=== PATIENT | female | born 1940 | race Caucasian/White ===

== ENCOUNTER 2019-08-28 06:07 | Inpatient (IN) | payer MEDICARE, OTHER ==
[~2019-08-28 06:07] MED LIST: Acetaminophen 325 MG Tab PO SCH; Lidocaine 1%/Sod Bicarbonate in NS 8.4% 1 ML Syringe IDERM PRN; Pregabalin 25 MG Cap PO SCH; Sodium Chloride 0.9% 10 ML Syringe FLUSH PRN; oxyCODONE ER 10 MG TAB.ER PO SCH
[2019-08-28] MEDS: Lactated Ringers 1,000 ML IV SCH ×2 (06:15→06:40)
[2019-08-28] MEDS ORDERED: Naloxone 0.4 MG/ML SDV IVPUSH PRN (06:24)
[2019-08-28] MEDS ORDERED: Sennosides 8.6 MG Tab PO PRN (06:24)
[2019-08-28] MEDS ORDERED: Bisacodyl 5 MG Tab PO PRN (06:24)
[2019-08-28] MEDS ORDERED: Magnesium Hydroxide 400 MG/5 ML Susp 30 ML Cup PO PRN (06:24)
[2019-08-28] MEDS ORDERED: Morphine 2 MG/ML SYRINGE IVPUSH PRN (06:24)
[2019-08-28] MEDS ORDERED: Ondansetron 4 MG/2 ML SDV IVPUSH PRN (06:24)
--- NOTE | 2019-08-28 07:09 | PCM.PREANE ---
Preanesthetic Assessment - Anesthesia/Transfusion/Family Hx Anesthesia History: Prior Anesthesia Without Reaction (previous TKR procedure ended in aborted spinal and conversion to GA) Other Type of Anesthesia Reaction Comment: PONV Transfusion History: No Prior Transfusion(s) Intubation History: Unknown - Review of Systems General: No Symptoms Pulmonary: No Symptoms Cardiovascular: No Symptoms Gastrointestinal: No Symptoms Neurological: No Symptoms Other: Reports: None - Physical Assessment NPO Status Date: 08/27/19 NPO Status Time: 21:00 Vital Signs: Last Vital Signs Temp 97.8 F 08/28/19 06:20 Pulse 91 08/28/19 06:20 Resp 16 08/28/19 06:20 BP 134/72 08/28/19 06:20 Pulse Ox 91 L 08/28/19 06:20 Height: 1.6 m Weight: 99.79 kg ASA Class: 3 Mental Status: Alert & Oriented x3 Airway Class: Mallampati = 3 Dentition: Reports: [place](s), Missing Tooth/Teeth Thyro-Mental Finger Breadths: 3 Mouth Opening Finger Breadths: 3 ROM/Head Extension: Full Lungs: Clear to Auscultation, Normal Respiratory Effort, Decreased Breath Sounds Cardiovascular: Regular Rate, Regular Rhythm - Lab Values: Laboratory Last Values MRSA (PCR) Negative 08/15/19 13:55 - Allergies Allergies/Adverse Reactions: Allergies Allergy/AdvReac Type Severity Reaction Status Date / Time cephalexin Allergy Hives Verified 08/25/19 11:18 codeine Allergy Hives Verified 08/25/19 11:18 nitrofurantoin Allergy Rash Verified 08/25/19 11:18 sulfacetamide Allergy Hives Verified 08/25/19 11:18 - Acknowledgements Anesthesia Type Planned: General Anesthesia, Spinal, Regional Block (adductor canal post-procedure) Pt an Appropriate Candidate for the Planned Anesthesia: Yes Alternatives and Risks of Anesthesia Discussed w Pt/Guardian: Yes Pt/Guardian Understands and Agrees with Anesthesia Plan: Yes PreAnesthesia Questionnaire HEENT History: Reports: Allergic Rhinitis, Impaired Vision Cardiovascular History: Reports: Heart Failure, High Cholesterol, Hypertension, Other (See Below) Other Cardiovascular History: chest pain, edema Respiratory History: Reports: Asthma Gastrointestinal History: Reports: Hiatal Hernia Genitourinary History: Reports: Other (See Below) Other Genitourinary History: dysuria, hematuria Musculoskeletal History: Reports: Arthritis, Back Pain, Chronic, Osteoarthritis , Osteoporosis, Other (See Below) Other Musculoskeletal History: knee pain, back pain, restless leg syndrome Psychiatric History: Reports: Depression Endocrine/Metabolic History: Reports: Obesity/BMI 30+ Hematologic History: Reports: Bleeding Disorder Immunologic History: Reports: None Oncologic (Cancer) History: Reports: None Dermatologic History: Reports: None - Past Surgical History Head Surgeries/Procedures: Reports: None Cardiovascular Surgical History: Reports: None Respiratory Surgical History: Reports: None GI Surgical History: Reports: Nicanor Fundoplication Female Surgical History: Reports: Hysterectomy Other Female Surgeries/Procedures: Bladder surgery Endocrine Surgical History: Reports: None Neurological Surgical History: Reports: Lumbar Spine Musculoskeletal Surgical History: Reports: Knee Replacement (December 2018) Oncologic Surgical History: Reports: None Dermatological Surgical History: Reports: None - SUBSTANCE USE Smoking Status *Q: Former Smoker Recreational Drug Use History: No - HOME MEDS Home Medications: Home Meds Denosumab [Prolia] 60 mg SUBCUT ASDIRECTED 04/02/17 [History] Albuterol [Ventolin HFA] 1 - 2 puff INH Q6H PRN 12/24/18 [History] Bumetanide 1 mg PO DAILY 12/24/18 [History] Cetirizine HCl [Zyrtec] 10 mg PO DAILY 12/24/18 [History] Gabapentin [Neurontin] 600 mg PO BID 12/24/18 [History] Montelukast [Singulair] 10 mg PO BEDTIME 12/24/18 [History] Cove-3/DHA/Epa/Fish Oil [Cove 3 500 Softgel] 1 cap PO DAILY 12/24/18 [History] Pramipexole Di-HCl [Mirapex] 1 mg PO BEDTIME 12/24/18 [History] Sennosides/Docusate Sodium [Senna-Docusate Sodium Tablet] 2 tab PO DAILY [History] atorvaSTATin [Lipitor] 20 mg PO DAILY 12/24/18 [History] Cholecalciferol (Vitamin D3) [Vitamin D3] 5,000 unit PO DAILY 08/25/19 [History] Levothyroxine 25 mcg PO DAILY 08/25/19 [History] Losartan Potassium 100 mg PO DAILY 08/25/19 [History] hydroCHLOROthiazide [Hydrochlorothiazide] 12.5 mg PO DAILY 08/25/19 [History] oxyCODONE HCl/Acetaminophen [Oxycodone-Acetaminophen 5-325] 1 - 2 tab PO Q4H PRN 08/25/19 [History] traMADol HCl [Tramadol HCl] 100 mg PO Q6H PRN 08/25/19 [History] Tiotropium [Spiriva HandiHaler] 1 puff INH ASDIRECTED 08/28/19 [History] - CURRENT (IN HOUSE) MEDS Current Meds: Current Medications Acetaminophen (Tylenol) 975 mg PO ONETIME [facility] Stop: 08/28/19 16:00 Last Admin: 08/28/19 06:14 Dose: 975 mg Bisacodyl (Dulcolax) 5 mg PO DAILY PRN PRN Reason: Constipation Morphine Sulfate 8 mg/Epinephrine HCl 0.3 mg/Cefuroxime Sodium 750 mg/Ketorolac Tromethamine 30 mg/Sodium Chloride 7.9 ml 0 mg .XX ASDIRECTED PRN PRN Reason: Pain Cyclobenzaprine HCl (Flexeril) 5 mg PO BID PRN PRN Reason: Spasms Docusate Sodium (Colace) 100 mg PO BID LORENZO Famotidine (Pepcid) 20 mg PO Q12H [facility] Lactated Ringer's (Ringers, Lactated) 1,000 mls @ 125 mls/hr IV ASDIRECTED [facility] Stop: 08/28/19 23:00 Last Admin: 08/28/19 06:40 Dose: 125 mls/hr Cefazolin Sodium/Dextrose 2 gm (/ Premix) 50 mls @ 100 mls/hr IV Q8H [facility] Stop: 08/28/19 22:59 Ketorolac Tromethamine (Toradol) 15 mg IVPUSH Q6H PRN PRN Reason: Pain Lidocaine/Sodium Bicarbonate (Buffered Lidocaine 1% In Ns 8.4%) 0.25 ml IDERM ONETIME PRN PRN Reason: Prior to IV Start Stop: 08/28/19 18:00 Last Admin: 08/28/19 06:15 Dose: 0.25 ml Magnesium Hydroxide (Milk Of Magnesia) 30 ml PO BID PRN PRN Reason: Constipation Morphine Sulfate (Morphine) 2 mg IVPUSH Q2H PRN PRN Reason: Breakthrough Pain Naloxone HCl (Narcan) 0.1 mg IVPUSH Q5M PRN PRN Reason: Oversedation Ondansetron HCl (Zofran) 4 mg IVPUSH Q6H PRN PRN Reason: Nausea/Vomiting Oxycodone HCl (Oxycontin) 10 mg PO ONETIME [facility] Stop: 08/28/19 16:00 Last Admin: 08/28/19 06:14 Dose: 10 mg Oxycodone/Acetaminophen (Percocet 325-5 Mg) 1 - 2 tab PO Q4H PRN PRN Reason: Pain Pregabalin (Lyrica) 50 mg PO ONETIME [facility] Stop: 08/28/19 16:00 Last Admin: 08/28/19 06:14 Dose: 50 mg Rivaroxaban (Xarelto) 10 mg PO DAILY [facility] Senna (Senna) 8.6 mg PO BID PRN PRN Reason: Constipation Sodium Chloride (Saline Flush) 10 ml FLUSH ASDIRECTED PRN PRN Reason: Keep Vein Open Stop: 08/28/19 18:00 Discontinued Medications Bupivacaine HCl (Sensorcaine-Mpf 0.25%) Confirm Administered Dose 30 ml .ROUTE .STK-MED ONE Stop: 08/28/19 06:13 Cefazolin Sodium (Ancef) Confirm Administered Dose 2 gm .ROUTE .STK-MED ONE Stop: 08/28/19 06:13 Iodine (Iodine 2% Mild Tincture) Confirm Administered Dose 30 ml .ROUTE .STK- MED ONE Stop: 08/28/19 06:13 Tranexamic Acid (Cyklokapron) Confirm Administered Dose 1,000 mg .ROUTE .STK- MED ONE Stop: 08/28/19 06:13 Vancomycin HCl (Vancomycin) Confirm Administered Dose 1 gm .ROUTE .STK-MED ONE Stop: 08/28/19 06:13
[2019-08-28] MEDS ORDERED: EPINEPHrine 1 MG/ML SDV ONE ×2 (07:12→07:16)
[2019-08-28] MEDS ORDERED: Ropivacaine 0.5% 5 MG/ML 30 ML SDV ONE (07:12)
[2019-08-28] MEDS ORDERED: Propofol 200 MG/20 ML SDV ONE (07:13)
[2019-08-28] MEDS ORDERED: fentaNYL 100 MCG/2 ML SDV ONE (07:13)
[2019-08-28] MEDS ORDERED: Midazolam 1 MG/ML 2 ML SDV ONE (07:13)
[2019-08-28] MEDS ORDERED: ceFAZolin 1 GM Vial ONE (07:18)
[2019-08-28] MEDS: ceFAZolin 1 GM Vial ONE ×2 (08:27→08:48)
[2019-08-28] MEDS: Bupivacaine 0.25% 10 ML SDV ONE ×2 (08:27→08:54)
[2019-08-28] MEDS: Iodine/Sodium Iodide 2% Tincture 30 ML Bottle ONE ×2 (08:27→08:45)
[2019-08-28] MEDS: Morphine 8 MG, EPINEPHrine 0.3 MG, Cefuroxime 750 MG, Ketorolac 30 MG, Sodium Chloride ... ONE ×10 (08:28→08:54)
[2019-08-28] MEDS: Vancomycin 1 GM SDV ONE ×2 (08:28→08:56)
--- NOTE | 2019-08-28 08:33 | PCM.CONS ---
H&P History of Present Illness - General Date of Service: 08/28/19 Admit Problem/Dx: Admission Diagnosis/Problem Admission Diagnosis/Problem Osteoarthritis of knee Source of Information: Patient, Old Records, Provider, RN, RN Notes Reviewed History Limitations: Reports: No Limitations - History of Present Illness Initial Comments - Free Text/Narative: Angela Fuentes is a 79 yo female patient of Dr. Coyne who is post-operative day 0 of left TKA. Hospital medicine was consulted for post-operative medical care of the following listed medical conditions. At this time she is resting comfortably in bed. Pain is controlled. She denies any chest pain, shortness of breath, palpitations, nausea, or vomiting. She carries a history of: Asthma, Type II DM, Chronic low back pain, HTN, RLS, HLD, Depression, Dysuria, Edema, Hematuria, Osteoporosis, Heart failure, Hiatal hernia, Osteoarthritis, Obesity, Bleeding disorder, Hyperthyroidism, Hx/o Nicanor fundoplication. She is a former smoker. She is a full code. Her primary care provider is Dr. Alex. Left Knee Pain Score (Numeric/FACES): 3 - Related Data Allergies/Adverse Reactions: Allergies Allergy/AdvReac Type Severity Reaction Status Date / Time cephalexin Allergy Hives Verified 08/25/19 11:18 codeine Allergy Hives Verified 08/25/19 11:18 nitrofurantoin Allergy Rash Verified 08/25/19 11:18 sulfacetamide Allergy Hives Verified 08/25/19 11:18 Home Medications: Home Meds Denosumab [Prolia] 60 mg SUBCUT ASDIRECTED 04/02/17 [History] Albuterol [Ventolin HFA] 1 - 2 puff INH Q6H PRN 12/24/18 [History] Bumetanide 1 mg PO DAILY 12/24/18 [History] Cetirizine HCl [Zyrtec] 10 mg PO DAILY 12/24/18 [History] Gabapentin [Neurontin] 600 mg PO BID 12/24/18 [History] Montelukast [Singulair] 10 mg PO BEDTIME 12/24/18 [History] Zenda-3/DHA/Epa/Fish Oil [Zenda 3 500 Softgel] 1 cap PO DAILY 12/24/18 [History] Pramipexole Di-HCl [Mirapex] 1 mg PO BEDTIME 12/24/18 [History] Sennosides/Docusate Sodium [Senna-Docusate Sodium Tablet] 2 tab PO DAILY [History] atorvaSTATin [Lipitor] 20 mg PO DAILY 12/24/18 [History] Cholecalciferol (Vitamin D3) [Vitamin D3] 5,000 unit PO DAILY 08/25/19 [History] Levothyroxine 25 mcg PO DAILY 08/25/19 [History] Losartan Potassium 100 mg PO DAILY 08/25/19 [History] hydroCHLOROthiazide [Hydrochlorothiazide] 12.5 mg PO DAILY 08/25/19 [History] oxyCODONE HCl/Acetaminophen [Oxycodone-Acetaminophen 5-325] 1 - 2 tab PO Q4H PRN 08/25/19 [History] traMADol HCl [Tramadol HCl] 100 mg PO Q6H PRN 08/25/19 [History] Tiotropium [Spiriva HandiHaler] 1 puff INH ASDIRECTED 08/28/19 [History] Past Medical History HEENT History: Reports: Allergic Rhinitis, Impaired Vision Cardiovascular History: Reports: Heart Failure, High Cholesterol, Hypertension, Other (See Below) Other Cardiovascular History: chest pain, edema Respiratory History: Reports: Asthma Gastrointestinal History: Reports: Hiatal Hernia Genitourinary History: Reports: Other (See Below) Other Genitourinary History: dysuria, hematuria STRIP[employer] GUN History: Reports: None Musculoskeletal History: Reports: Arthritis, Back Pain, Chronic, Osteoarthritis , Osteoporosis, Other (See Below) Other Musculoskeletal History: knee pain, back pain, restless leg syndrome Neurological History: Reports: None Psychiatric History: Reports: Depression Endocrine/Metabolic History: Reports: Obesity/BMI 30+ Hematologic History: Reports: Bleeding Disorder Immunologic History: Reports: None Oncologic (Cancer) History: Reports: None Dermatologic History: Reports: None - Past Surgical History Head Surgeries/Procedures: Reports: None Cardiovascular Surgical History: Reports: None Respiratory Surgical History: Reports: None GI Surgical History: Reports: Nicanor Fundoplication Female Surgical History: Reports: Hysterectomy Other Female Surgeries/Procedures: Bladder surgery Endocrine Surgical History: Reports: None Neurological Surgical History: Reports: Lumbar Spine Musculoskeletal Surgical History: Reports: Knee Replacement (December 2018) Oncologic Surgical History: Reports: None Dermatological Surgical History: Reports: None Social & Family History - Tobacco Use Smoking Status *Q: Former Smoker Used Tobacco, but Quit: Yes Month/Year Tobacco Last Used: 1969 - Caffeine Use Caffeine Use: Reports: Coffee - Recreational Drug Use Recreational Drug Use: No H&P Review of Systems - Review of Systems: Review Of Systems: See Below General: Reports: No Symptoms. Denies: Fever, Chills HEENT: Reports: No Symptoms. Denies: Headaches, Sore Throat Pulmonary: Reports: No Symptoms. Denies: Shortness of Breath, Wheezing, Pleuritic Chest Pain, Cough, Sputum Cardiovascular: Reports: No Symptoms. Denies: Chest Pain, Palpitations, Dyspnea on Exertion Gastrointestinal: Reports: No Symptoms. Denies: Abdominal Pain, Constipation, Diarrhea, Nausea, Vomiting Genitourinary: Reports: No Symptoms Musculoskeletal: Reports: Back Pain (chroinc ), Leg Pain (left) Skin: Reports: No Symptoms. Denies: Cyanosis Psychiatric: Reports: No Symptoms. Denies: Confusion Neurological: Reports: Difficulty Walking, Gait Disturbance Hematologic/Lymphatic: Reports: No Symptoms Immunologic: Reports: No Symptoms Exam - Exam Exam: See Below - Vital Signs Vital Signs: Last Vital Signs Temp 97.8 F 08/28/19 06:20 Pulse 91 08/28/19 06:20 Resp 16 08/28/19 06:20 BP 134/72 08/28/19 06:20 Pulse Ox 91 L 08/28/19 06:20 Weight: 220 lb - Exam Quality Assessment: Supplemental Oxygen (2L), DVT Prophylaxis General: Alert, Oriented, Cooperative. No: Mild Distress HEENT: Conjunctiva Clear, EACs Clear, Hearing Intact, Mucosa Moist & [place], Posterior Pharynx Clear, PERRLA Neck: Supple, Trachea Midline Lungs: Clear to Auscultation, Normal Respiratory Effort Cardiovascular: Regular Rate, Regular Rhythm GI/Abdominal Exam: Normal Bowel Sounds, Soft, Non-Tender, No Distention (Female) Exam: Deferred Rectal (Female) Exam: Deferred Extremities: Normal Capillary Refill, Leg Pain, Limited Range of Motion, Other ( Bandage in place on left leg. Bandage is dry and intact. Cooling pack in place. ) Peripheral Pulses: 2+: Radial (L), Radial (R), Dorsalis Pedis (L), Dorsalis Pedis (R) Skin: Warm, Dry, Intact Neurological: Cranial Nerves Intact (Grossly ) Neuro Extensive - Mental Status: Alert, Oriented x3, Normal Mood/Affect - Patient Data Lab Results Last 24 hrs: Laboratory Results - last 24 hr 08/28/19 Range/Units 06:35 PT 10.3 (9.7-12.0) SECONDS INR 0.94 APTT 25 (22-31) SECONDS Sepsis Event Note - Evaluation Sepsis Screening Result: No Definite Risk - Focused Exam Vital Signs: Vital Signs Temp Pulse Resp BP Pulse Ox 08/28/19 06:20 97.8 F 91 16 134/72 91 L Date Exam was Performed: 08/28/19 Time Exam was Performed: 14:02 Consult PN Assessment/Plan POD#: 0 Procedures: Procedures AIRWAY INHALATION TREATMENT (12/26/18) ASSAY OF BLOOD/URIC ACID (08/14/19) ASSAY OF CK (CPK) (09/29/18) ASSAY OF CREATININE (04/02/17) ASSAY OF FREE THYROXINE (08/14/19) ASSAY OF IRON (08/14/19) ASSAY OF LACTIC ACID (08/14/19) ASSAY OF MAGNESIUM (01/04/19) ASSAY OF NATRIURETIC PEPTIDE (09/29/18) ASSAY OF TROPONIN QUANT (09/29/18) ASSAY THYROID STIM HORMONE (08/14/19) BREAST TOMOSYNTHESIS BI (08/16/19) C-REACTIVE PROTEIN (08/14/19) CARDIOVASCULAR STRESS TEST (11/01/18) CO/MEMBANE DIFFUSE CAPACITY (08/10/19) COMPLETE CBC AUTOMATED (12/26/18) COMPLETE CBC W/AUTO DIFF WBC (08/14/19) COMPREHEN METABOLIC PANEL (08/14/19) DXA BONE DENSITY AXIAL (07/29/18) ELECTROCARDIOGRAM TRACING (12/15/18) EVALUATION OF WHEEZING (08/10/19) EXTREMITY STUDY (01/03/19) FIBRIN DEGRADATION QUANT (09/29/18) GAIT TRAINING THERAPY (12/26/18) GLYCOSYLATED HEMOGLOBIN TEST (08/14/19) HT MUSCLE IMAGE SPECT MULT (11/01/18) LIPID PANEL (08/14/19) MEASURE BLOOD OXYGEN LEVEL (12/26/18) MR-STAPH DNA AMP PROBE (12/26/18) MRI LUMBAR SPINE W/O & W/DYE (04/02/17) MRI LUMBAR SPINE W/O DYE (02/06/16) OFFICE/OUTPATIENT VISIT EST (01/04/19) OFFICE/OUTPATIENT VISIT EST (12/15/18) OFFICE/OUTPATIENT VISIT EST (10/06/18) OFFICE/OUTPATIENT VISIT EST (09/29/18) OT EVAL MOD COMPLEX 45 MIN (12/26/18) PROTHROMBIN TIME (12/26/18) PT EVAL LOW COMPLEX 20 MIN (12/26/18) ROUTINE VENIPUNCTURE (08/14/19) SCR MAMMO BI INCL CAD (08/16/19) SELF CARE MNGMENT TRAINING (12/26/18) SMEAR WET MOUNT SALINE/INK (10/06/18) THER/PROPH/DIAG INJ SC/IM (01/04/19) THERAPEUTIC EXERCISES (12/26/18) THROMBOPLASTIN TIME PARTIAL (12/26/18) TRICHOMONAS ASSAY W/OPTIC (10/06/18) URINALYSIS AUTO W/SCOPE (08/15/19) US EXAM ABDO BACK WALL COMP (11/01/18) US EXAM OF HEAD AND NECK (07/29/18) VITAMIN B-12 (08/14/19) X-RAY EXAM CHEST 2 VIEWS (09/29/18) X-RAY EXAM L-S SPINE 2/3 VWS (05/07/17) X-RAY EXAM OF KNEE 1 OR 2 (12/26/18) X-RAY EXAM OF PELVIS (12/29/16) (1) Asthma SNOMED Code(s): 419530286 Code(s): J45.909 - UNSPECIFIED ASTHMA, UNCOMPLICATED Priority: Medium Current Visit: No Qualifiers: Asthma severity: unspecified severity Asthma persistence: unspecified Asthma complication type: unspecified Qualified Code(s): J45.909 - Unspecified asthma, uncomplicated (2) Blood clotting disorder SNOMED Code(s): 07820017 Code(s): D68.9 - COAGULATION DEFECT, UNSPECIFIED Priority: Medium Current Visit: No (3) CHF (congestive heart failure) SNOMED Code(s): 77679693 Code(s): I50.9 - HEART FAILURE, UNSPECIFIED Priority: Medium Current Visit: No Qualifiers: Heart failure type: unspecified Heart failure chronicity: unspecified Qualified Code(s): I50.9 - Heart failure, unspecified (4) Chronic constipation SNOMED Code(s): 614596978 Code(s): K59.09 - OTHER CONSTIPATION Priority: Medium Current Visit: No (5) Depression SNOMED Code(s): 24272121 Code(s): F32.9 - MAJOR DEPRESSIVE DISORDER, SINGLE EPISODE, UNSPECIFIED Priority: Low Current Visit: No Qualifiers: Depression Type: other depression Qualified Code(s): F32.89 - Other specified depressive episodes (6) Edema SNOMED Code(s): 394240950, 720563983 Code(s): R60.9 - EDEMA, UNSPECIFIED Priority: Low Current Visit: No Qualifiers: Edema type: unspecified Qualified Code(s): R60.9 - Edema, unspecified (7) HTN (hypertension) SNOMED Code(s): 77666113 Code(s): I10 - ESSENTIAL (PRIMARY) HYPERTENSION Priority: Low Current Visit: No Qualifiers: Hypertension type: unspecified Qualified Code(s): I10 - Essential (primary ) hypertension (8) Hiatal hernia SNOMED Code(s): 27317289 Code(s): K44.9 - DIAPHRAGMATIC HERNIA WITHOUT OBSTRUCTION OR GANGRENE Priority: Medium Current Visit: No (9) History of Nicanor fundoplication SNOMED Code(s): 211508032 Code(s): Z98.890 - OTHER SPECIFIED POSTPROCEDURAL STATES Priority: Medium Current Visit: No (10) Obesity (BMI 35.0-39.9 without comorbidity) SNOMED Code(s): 260489445, 074469953 Code(s): E66.9 - OBESITY, UNSPECIFIED Priority: Low Current Visit: No (11) Osteoarthritis SNOMED Code(s): 388103435 Code(s): M19.90 - UNSPECIFIED OSTEOARTHRITIS, UNSPECIFIED SITE Priority: High Current Visit: No Qualifiers: Osteoarthritis location: knee Osteoarthritis type: primary Laterality: left Qualified Code(s): M17.12 - Unilateral primary osteoarthritis, left knee (12) Osteoporosis SNOMED Code(s): 55342835 Code(s): M81.0 - AGE-RELATED OSTEOPOROSIS W/O CURRENT PATHOLOGICAL FRACTURE Priority: Medium Current Visit: No Qualifiers: Osteoporosis type: unspecified Presence of current pathological fracture: unspecified Qualified Code(s): M81.0 - Age-related osteoporosis without current pathological fracture (13) RLS (restless legs syndrome) SNOMED Code(s): 15619832 Code(s): G25.81 - RESTLESS LEGS SYNDROME Priority: Medium Current Visit: No (14) S/P total knee arthroplasty SNOMED Code(s): 9365112826960, 988627998, 2206772961493 Code(s): Z96.659 - PRESENCE OF UNSPECIFIED ARTIFICIAL KNEE JOINT Priority: High Current Visit: No Qualifiers: Laterality: left Qualified Code(s): Z96.652 - Presence of left artificial knee joint (15) Chronic low back pain SNOMED Code(s): 041163487 Code(s): M54.5 - LOW BACK PAIN; G89.29 - OTHER CHRONIC PAIN Priority: Low Current Visit: No Qualifiers: Back pain laterality: unspecified Sciatica presence: unspecified whether sciatica present Qualified Code(s): M54.5 - Low back pain; G89.29 - Other chronic pain (16) Type II diabetes mellitus SNOMED Code(s): 83636280 Code(s): E11.9 - TYPE 2 DIABETES MELLITUS WITHOUT COMPLICATIONS Priority: Medium Current Visit: No Qualifiers: Diabetes mellitus intermission coordinator insulin use: without intermission coordinator use Diabetes mellitus complication status: with other specified complication Qualified Code (s): E11.69 - Type 2 diabetes mellitus with other specified complication (17) Hyperthyroidism SNOMED Code(s): 73038743 Code(s): E05.90 - THYROTOXICOSIS, UNSP WITHOUT THYROTOXIC CRISIS OR STORM Priority: Low Current Visit: No Problem List Initiated/Reviewed/Updated: Yes Plan: I/P: Acute: S/P left total knee arthroplasty - post-operative day 0 -DVT prophylaxis and pain management per primary care team -PT/OT -IS/RT -Monitor oxygen saturation -Titrate oxygen as needed -Home medications reviewed -Vital signs stable -Monitor labs -Pre-operative Hgb was 13.0 -Pre-operative GFR was >60 Osteoarthritis of left knee -Pain management per primary care team Chronic: Asthma Type II DM Chronic low back pain HTN RLS HLD Depression Dysuria Edema Hematuria Osteoporosis Heart failure Hiatal hernia Osteoarthritis Obesity Bleeding disorder Hyperthyroidism Hx/o Nicanor fundoplication Plan: CM for discharge planning GI prophylaxis Home medications as indicated Other orders as listed above Routine AM labs She is a full code. Her PCP is Dr. Alex Thank you for allowing us to participate in the care of this patient!! Requesting Provider: Dr. Coyne Date Consult Requested: 08/28/19 Patient History Reviewed: Yes Admission H&P Reviewed: Yes Notified Requestor: Yes
--- NOTE | 2019-08-28 09:52 | PCM.POSTAN ---
POST ANESTHESIA ASSESSMENT - MENTAL STATUS Mental Status: Alert, Oriented - VITAL SIGNS Vital Signs: Last Vital Signs Temp 98.3 F 08/28/19 09:24 Pulse 91 08/28/19 06:20 Resp 11 L 08/28/19 09:45 BP 123/63 08/28/19 09:45 Pulse Ox 96 08/28/19 09:45 - RESPIRATORY Respiratory Status: Respiratory Rate WNL, Airway Patent, O2 Saturation Stable, Supplemental Oxygen - CARDIOVASCULAR CV Status: Pulse Rate WNL, Blood Pressure Stable - GASTROINTESTINAL GI Status: No Symptoms - PAIN Pain Score: 0 (post SAB) - POST OP HYDRATION Hydration Status: Adequate & Stable
--- NOTE | 2019-08-28 10:06 | PCM.PRNOTE ---
- Free Text/Narrative Note: Postoperative regional pain control requested by surgeon. Pre-op Dx: Left knee osteoarthritis. Post-op Rx: Total Left knee arthroplasty. Procedure: Left Adductor canal block with U/S guidance Requesting physician: Dr. Micky Hernandez Risks and benefits discussed with the patient preoperatively including infection , bleeding, incomplete or failed block, possible nerve damage, local anesthetic toxicity. Permit signed. Patient after spinal anesthesia post surgery in PACU, stable , alert and awake. Time out performed. Left mid-thigh was prepped with Chloraprep x 1 and allowed to dry. Under aseptic technique, the left femoral artery and sartorius muscle were identified under ultrasound prior to needle insertion. 4" Stimuplex needle #22 G was inserted under US guidance. Under direct visualization of needle tip the injection of 0.5% Ropivacaine with 1:200k epinephrine, total of 30 mls in divided doses, maintaining negative aspiration was completed without problems. No local anesthetic toxicity was noted. Patient is awake, stable and tolerated the procedure well. Time: 09:30 - 09:37 Francisco Iqbal CRNA Please see attached U/S pictures.
--- NOTE | 2019-08-28 11:03 | CR ---
Left knee: AP and lateral views of the left knee were obtained. Comparison: No prior left knee exam. Knee prosthesis is seen. Components are aligned. Underlying bony structures are intact. Soft tissue air is noted from the surgical procedure. Impression: 1. Satisfactory postop radiographic appearance of recently placed left knee prosthesis. Diagnostic code #2 This report was dictated in [place] Standard Time
[2019-08-28] MEDS: Cyclobenzaprine 10 MG Tab PO PRN ×2 (11:40→21:59)
[2019-08-28] MEDS: Acetaminophen/oxyCODONE 325-5 MG Tab PO PRN ×3 (11:42→21:57)
[2019-08-28] MEDS ORDERED: Non-Formulary Medication 1 Each (Albuterol 0 PUFF) INH PRN (13:04)
[2019-08-28] MEDS ORDERED: Denosumab 60 MG/1 ML Syringe SUBCUT SCH (13:15)
[2019-08-28] MEDS ORDERED: TIOTROPIUM INH SCH (13:15)
[2019-08-28] MEDS ORDERED: Albuterol/Ipratropium 3.0-0.5 MG/3 ML Neb Soln NEB PRN (14:01)
[2019-08-28] MEDS: ceFAZolin 2 GM in Premix Bag 1 BAG IV SCH ×2 (15:26→23:26)
[2019-08-28] MEDS ORDERED: Docusate Sodium 100 MG Cap PO SCH (21:00)
[2019-08-28] MEDS ORDERED: Pramipexole 0.5 MG Tab PO SCH (21:00)
[2019-08-28] MEDS ORDERED: Montelukast 10 MG Tab PO SCH (21:00)
[2019-08-28] MEDS: Famotidine 20 MG Tab PO SCH (21:57)
[2019-08-28] MEDS: Gabapentin 600 MG Tab PO SCH (23:22)
[2019-08-29] MEDS: Ketorolac 15 MG/ML SDV IVPUSH PRN ×2 (01:09→07:48)
[2019-08-29] MEDS: Acetaminophen/oxyCODONE 325-5 MG Tab PO PRN ×3 (01:48→10:46)
[2019-08-29] MEDS: ceFAZolin 2 GM in Premix Bag 1 BAG IV SCH (06:52)
--- NOTE | 2019-08-29 07:05 | PCM.CONSN ---
- General Info Date of Service: 08/29/19 Admission Dx/Problem (Free Text): Admission Diagnosis/Problem Admission Diagnosis/Problem Osteoarthritis of knee Functional Status: Reports: Pain Controlled, Tolerating Diet, Ambulating, Urinating, Incentive Spirometry. Denies: New Symptoms - Review of Systems General: Reports: No Symptoms. Denies: Fever, Chills HEENT: Reports: No Symptoms. Denies: Headaches, Sore Throat Pulmonary: Reports: No Symptoms. Denies: Shortness of Breath, Pleuritic Chest Pain, Cough, Sputum, Wheezing Cardiovascular: Reports: No Symptoms. Denies: Chest Pain, Palpitations, Dyspnea on Exertion Gastrointestinal: Reports: No Symptoms. Denies: Abdominal Pain, Constipation, Diarrhea, Nausea, Vomiting Genitourinary: Reports: No Symptoms. Denies: Pain Musculoskeletal: Reports: Leg Pain Skin: Reports: No Symptoms. Denies: Cyanosis Neurological: Reports: No Symptoms, Difficulty Walking, Gait Disturbance. Denies: Confusion Psychiatric: Reports: No Symptoms - Patient Data Vitals - Most Recent: Last Vital Signs Temp 97.6 F 08/29/19 01:00 Pulse 91 08/29/19 01:00 Resp 14 08/29/19 01:00 BP 129/62 08/29/19 01:00 Pulse Ox 95 08/29/19 01:00 Weight - Most Recent: 220 lb I&O - Last 24 Hours: Intake & Output 08/28/19 08/29/19 08/29/19 22:59 06:59 14:59 Intake Total 1320 Output Total 825 625 Balance 495 -625 Lab Results Last 24 Hours: Laboratory Results - last 24 hr 08/28/19 08/29/19 08/29/19 Range/Units 06:35 05:52 05:52 WBC 8.65 (3.98-10.04) K/mm3 RBC 3.95 L (3.98-5.22) M/mm3 Hgb 11.5 D (11.2-15.7) gm/dl Hct 37.7 (34.1-44.9) % MCV 95.4 H (79.4-94.8) fl MCH 29.1 (25.6-32.2) pg MCHC 30.5 L (32.2-35.5) g/dl RDW Std Deviation 43.9 (36.4-46.3) fL Plt Count 285 D (182-369) K/mm3 MPV 9.3 L (9.4-12.3) fl PT 10.3 (9.7-12.0) SECONDS INR 0.94 APTT 25 (22-31) SECONDS Sodium 139 (136-145) mEq/L Potassium 4.1 (3.5-5.1) mEq/L Chloride 102 (98-107) mEq/L Carbon Dioxide 30 (21-32) mEq/L Anion Gap 11.1 (5-15) BUN 14 (7-18) mg/dL Creatinine 0.8 (0.55-1.02) mg/dL Est Cr Clr Drug Dosing 47.17 mL/min Estimated GFR (MDRD) > 60 (>60) mL/min BUN/Creatinine Ratio 17.5 (14-18) Glucose 121 H (83-115) mg/dL Calcium 8.8 (8.5-10.1) mg/dL Total Bilirubin 0.4 (0.2-1.0) mg/dL AST 15 (15-37) U/L ALT 21 (14-59) U/L Alkaline Phosphatase 87 (46-116) U/L Total Protein 7.1 (6.4-8.2) g/dl Albumin 3.0 L (3.4-5.0) g/dl Globulin 4.1 gm/dL Albumin/Globulin Ratio 0.7 L (1-2) Med Orders - Current: Current Medications Albuterol/Ipratropium (Duoneb 3.0-0.5 Mg/3 Ml) 3 ml NEB Q6HRRT PRN PRN Reason: wheezing/SOB/cough Bisacodyl (Dulcolax) 5 mg PO DAILY PRN PRN Reason: Constipation Cholecalciferol (Vitamin D3) 5,000 unit PO DAILY [facility] Cyclobenzaprine HCl (Flexeril) 5 mg PO BID PRN PRN Reason: Spasms Last Admin: 08/28/19 21:59 Dose: 5 mg Famotidine (Pepcid) 20 mg PO Q12H [facility] Last Admin: 08/28/19 21:57 Dose: 20 mg Gabapentin (Neurontin) 600 mg PO BID [facility] Last Admin: 08/28/19 23:22 Dose: 600 mg Cefazolin Sodium/Dextrose 2 gm (/ Premix) 50 mls @ 100 mls/hr IV Q8H [facility] Stop: 08/29/19 07:44 Last Admin: 08/29/19 06:52 Dose: 100 mls/hr Ketorolac Tromethamine (Toradol) 15 mg IVPUSH Q6H PRN PRN Reason: Pain Last Admin: 08/29/19 01:09 Dose: 15 mg Levothyroxine Sodium (Levothyroxine) 25 mcg PO DAILY [facility] Loratadine (Claritin) 10 mg PO DAILY [facility] Losartan Potassium (Cozaar) 100 mg PO DAILY [facility] Magnesium Hydroxide (Milk Of Magnesia) 30 ml PO BID PRN PRN Reason: Constipation Montelukast Sodium (Singulair) 10 mg PO BEDTIME [facility] Last Admin: 08/28/19 21:57 Dose: 10 mg Morphine Sulfate (Morphine) 2 mg IVPUSH Q2H PRN PRN Reason: Breakthrough Pain Last Admin: 08/29/19 00:31 Dose: 2 mg Naloxone HCl (Narcan) 0.1 mg IVPUSH Q5M PRN PRN Reason: Oversedation Non-Formulary Medication (Tiotropium) 1 puff INH ASDIRECTED [facility] Ondansetron HCl (Zofran) 4 mg IVPUSH Q6H PRN PRN Reason: Nausea/Vomiting Oxycodone/Acetaminophen (Percocet 325-5 Mg) 1 - 2 tab PO Q4H PRN PRN Reason: Pain Last Admin: 08/29/19 05:43 Dose: 2 tab Pramipexole Dihydrochloride (Mirapex) 1 mg PO BEDTIME [facility] Last Admin: 08/28/19 21:57 Dose: 1 mg Rivaroxaban (Xarelto) 10 mg PO DAILY [facility] Senna (Senna) 8.6 mg PO BID PRN PRN Reason: Constipation Senna/Docusate Sodium (Senna Plus) 2 tab PO DAILY [facility] Simvastatin (Zocor) 20 mg PO DAILY [facility] Discontinued Medications Acetaminophen (Tylenol) 975 mg PO ONETIME [facility] Stop: 08/28/19 16:00 Last Admin: 08/28/19 06:14 Dose: 975 mg Bupivacaine HCl (Sensorcaine-Mpf 0.25%) Confirm Administered Dose 30 ml .ROUTE .STK-MED ONE Stop: 08/28/19 06:13 Last Admin: 03/09/20 08:54 Dose: 30 ml Cefazolin Sodium (Ancef) Confirm Administered Dose 2 gm .ROUTE .STK-MED ONE Stop: 08/28/19 06:13 Last Admin: 08/28/19 08:48 Dose: 2 gm Cefazolin Sodium (Ancef) Confirm Administered Dose 2 gm .ROUTE .STK-MED ONE Stop: 08/28/19 07:19 Morphine Sulfate 8 mg/Epinephrine HCl 0.3 mg/Cefuroxime Sodium 750 mg/Ketorolac Tromethamine 30 mg/Sodium Chloride 7.9 ml 0 mg .XX ONETIME ONE Stop: 08/28/19 06:25 Last Admin: 08/28/19 08:54 Dose: 788.3 mg Denosumab (Prolia) 60 mg SUBCUT ASDIRECTED [facility] Docusate Sodium (Colace) 100 mg PO BID [facility] Epinephrine HCl (Adrenalin) Confirm Administered Dose 1 mg .ROUTE .STK-MED ONE Stop: 08/28/19 07:13 Epinephrine HCl (Adrenalin) Confirm Administered Dose 1 mg .ROUTE .STK-MED ONE Stop: 08/28/19 07:17 Fentanyl (Sublimaze) Confirm Administered Dose 100 mcg .ROUTE .STK-MED ONE Stop: 08/28/19 07:14 Lactated Ringer's (Ringers, Lactated) 1,000 mls @ 125 mls/hr IV ASDIRECTED [facility] Stop: 08/28/19 23:00 Last Admin: 08/28/19 06:40 Dose: 125 mls/hr Iodine (Iodine 2% Mild Tincture) Confirm Administered Dose 30 ml .ROUTE .STK- MED ONE Stop: 08/28/19 06:13 Last Admin: 08/28/19 08:45 Dose: 18 ml Lidocaine HCl (Xylocaine-Mpf 1%) Confirm Administered Dose 5 ml .ROUTE .STK-MED ONE Stop: 08/28/19 07:46 Lidocaine/Sodium Bicarbonate (Buffered Lidocaine 1% In Ns 8.4%) 0.25 ml IDERM ONETIME PRN PRN Reason: Prior to IV Start Stop: 08/28/19 18:00 Last Admin: 08/28/19 06:15 Dose: 0.25 ml Midazolam HCl (Versed 1 Mg/Ml) Confirm Administered Dose 2 mg .ROUTE .STK-MED ONE Stop: 08/28/19 07:14 Miscellaneous Medication (Phenylephrine 1 Mg/10 Ml-Ns) Confirm Administered Dose 1 mg IV .STK-MED ONE Stop: 08/28/19 08:02 Miscellaneous Medication (Phenylephrine 1 Mg/10 Ml-Ns) Confirm Administered Dose 1 mg IV .STK-MED ONE Stop: 08/28/19 08:49 Non-Formulary Medication (Albuterol) 1 - 2 puff INH Q6H PRN PRN Reason: Shortness of Breath Oxycodone HCl (Oxycontin) 10 mg PO ONETIME [facility] Stop: 08/28/19 16:00 Last Admin: 08/28/19 06:14 Dose: 10 mg Pregabalin (Lyrica) 50 mg PO ONETIME [facility] Stop: 08/28/19 16:00 Last Admin: 08/28/19 06:14 Dose: 50 mg Propofol (Diprivan 20 Ml) Confirm Administered Dose 400 mg .ROUTE .STK-MED ONE Stop: 08/28/19 07:14 Ropivacaine (Naropin 0.5%) Confirm Administered Dose 30 ml .ROUTE .STK-MED ONE Stop: 08/28/19 07:13 Sodium Chloride (Saline Flush) 10 ml FLUSH ASDIRECTED PRN PRN Reason: Keep Vein Open Stop: 08/28/19 18:00 Tranexamic Acid (Cyklokapron) Confirm Administered Dose 1,000 mg .ROUTE .STK- MED ONE Stop: 08/28/19 06:13 Last Admin: 08/28/19 08:56 Dose: 1,000 mg Vancomycin HCl (Vancomycin) Confirm Administered Dose 1 gm .ROUTE .STK-MED ONE Stop: 08/28/19 06:13 Last Admin: 08/28/19 08:56 Dose: 1 gm - Exam Quality Assessment: DVT Prophylaxis General: Alert, Oriented, Cooperative, No Acute Distress HEENT: Pupils Equal, Pupils Reactive, Mucous Membr. Moist/[place] Neck: Supple, Trachea Midline Lungs: Clear to Auscultation, Normal Respiratory Effort Cardiovascular: Regular Rate, Regular Rhythm GI/Abdominal Exam: Normal Bowel Sounds, Soft, Non-Tender, No Distention (Female) Exam: Deferred Back Exam: Normal Inspection, Full Range of Motion Extremities: Normal Capillary Refill, Leg Pain, Limited Range of Motion, Other ( Bandage on left leg. Cooling pack in place. ) Peripheral Pulses: 2+: Radial (L), Radial (R), Dorsalis Pedis (L), Dorsalis Pedis (R) Skin: Warm, Dry, Intact Wound/Incisions: Dressing Dry and Intact Neurological: No New Focal Deficit Psy/Mental Status: Alert, Normal Affect, Normal Mood Sepsis Event Note - Evaluation Sepsis Screening Result: No Definite Risk - Focused Exam Vital Signs: Vital Signs Temp Temp Pulse Pulse Resp BP BP 08/29/19 01:00 97.6 F 91 14 129/62 08/28/19 22:17 87 08/28/19 22:15 94 08/28/19 22:14 98.2 F 96 16 159/79 H Pulse Ox 08/29/19 01:00 95 08/28/19 22:17 97 08/28/19 22:15 99 08/28/19 22:14 99 Date Exam was Performed: 08/29/19 Time Exam was Performed: 08:48 Consult PN Assessment/Plan POD#: 1 Procedures: Procedures AIRWAY INHALATION TREATMENT (12/26/18) ASSAY OF BLOOD/URIC ACID (08/14/19) ASSAY OF CK (CPK) (09/29/18) ASSAY OF CREATININE (04/02/17) ASSAY OF FREE THYROXINE (08/14/19) ASSAY OF IRON (08/14/19) ASSAY OF LACTIC ACID (08/14/19) ASSAY OF MAGNESIUM (01/04/19) ASSAY OF NATRIURETIC PEPTIDE (09/29/18) ASSAY OF TROPONIN QUANT (09/29/18) ASSAY THYROID STIM HORMONE (08/14/19) BREAST TOMOSYNTHESIS BI (08/16/19) C-REACTIVE PROTEIN (08/14/19) CARDIOVASCULAR STRESS TEST (11/01/18) CO/MEMBANE DIFFUSE CAPACITY (08/10/19) COMPLETE CBC AUTOMATED (12/26/18) COMPLETE CBC W/AUTO DIFF WBC (08/14/19) COMPREHEN METABOLIC PANEL (08/14/19) DXA BONE DENSITY AXIAL (07/29/18) ELECTROCARDIOGRAM TRACING (12/15/18) EVALUATION OF WHEEZING (08/10/19) EXTREMITY STUDY (01/03/19) FIBRIN DEGRADATION QUANT (09/29/18) GAIT TRAINING THERAPY (12/26/18) GLYCOSYLATED HEMOGLOBIN TEST (08/14/19) HT MUSCLE IMAGE SPECT MULT (11/01/18) LIPID PANEL (08/14/19) MEASURE BLOOD OXYGEN LEVEL (12/26/18) MR-STAPH DNA AMP PROBE (12/26/18) MRI LUMBAR SPINE W/O & W/DYE (04/02/17) MRI LUMBAR SPINE W/O DYE (02/06/16) OFFICE/OUTPATIENT VISIT EST (01/04/19) OFFICE/OUTPATIENT VISIT EST (12/15/18) OFFICE/OUTPATIENT VISIT EST (10/06/18) OFFICE/OUTPATIENT VISIT EST (09/29/18) OT EVAL MOD COMPLEX 45 MIN (12/26/18) PROTHROMBIN TIME (12/26/18) PT EVAL LOW COMPLEX 20 MIN (12/26/18) ROUTINE VENIPUNCTURE (08/14/19) SCR MAMMO BI INCL CAD (08/16/19) SELF CARE MNGMENT TRAINING (12/26/18) SMEAR WET [place] SALINE/INK (10/06/18) THER/PROPH/DIAG INJ SC/IM (01/04/19) THERAPEUTIC EXERCISES (12/26/18) THROMBOPLASTIN TIME PARTIAL (12/26/18) TRICHOMONAS ASSAY W/OPTIC (10/06/18) URINALYSIS AUTO W/SCOPE (08/15/19) US EXAM ABDO BACK WALL COMP (11/01/18) US EXAM OF HEAD AND NECK (07/29/18) VITAMIN B-12 (08/14/19) X-RAY EXAM CHEST 2 VIEWS (09/29/18) X-RAY EXAM L-S SPINE 2/3 VWS (05/07/17) X-RAY EXAM OF KNEE 1 OR 2 (12/26/18) X-RAY EXAM OF PELVIS (12/29/16) (1) Asthma SNOMED Code(s): 988442978 Code(s): J45.909 - UNSPECIFIED ASTHMA, UNCOMPLICATED Priority: Medium Current Visit: No Qualifiers: Asthma severity: unspecified severity Asthma persistence: unspecified Asthma complication type: unspecified Qualified Code(s): J45.909 - Unspecified asthma, uncomplicated (2) Blood clotting disorder SNOMED Code(s): 63814114 Code(s): D68.9 - COAGULATION DEFECT, UNSPECIFIED Priority: Medium Current Visit: No (3) CHF (congestive heart failure) SNOMED Code(s): 95040721 Code(s): I50.9 - HEART FAILURE, UNSPECIFIED Priority: Medium Current Visit: No Qualifiers: Heart failure type: unspecified Heart failure chronicity: unspecified Qualified Code(s): I50.9 - Heart failure, unspecified (4) Chronic constipation SNOMED Code(s): 217652847 Code(s): K59.09 - OTHER CONSTIPATION Priority: Medium Current Visit: No (5) Depression SNOMED Code(s): 95838884 Code(s): F32.9 - MAJOR DEPRESSIVE DISORDER, SINGLE EPISODE, UNSPECIFIED Priority: Low Current Visit: No Qualifiers: Depression Type: other depression Qualified Code(s): F32.89 - Other specified depressive episodes (6) Edema SNOMED Code(s): 164419797, 177600870 Code(s): R60.9 - EDEMA, UNSPECIFIED Priority: Low Current Visit: No Qualifiers: Edema type: unspecified Qualified Code(s): R60.9 - Edema, unspecified (7) HTN (hypertension) SNOMED Code(s): 03014905 Code(s): I10 - ESSENTIAL (PRIMARY) HYPERTENSION Priority: Low Current Visit: No Qualifiers: Hypertension type: unspecified Qualified Code(s): I10 - Essential (primary ) hypertension (8) Hiatal hernia SNOMED Code(s): 96887661 Code(s): K44.9 - DIAPHRAGMATIC HERNIA WITHOUT OBSTRUCTION OR GANGRENE Priority: Medium Current Visit: No (9) History of Nicanor fundoplication SNOMED Code(s): 797268962 Code(s): Z98.890 - OTHER SPECIFIED POSTPROCEDURAL STATES Priority: Medium Current Visit: No (10) Obesity (BMI 35.0-39.9 without comorbidity) SNOMED Code(s): 721720927, 257734164 Code(s): E66.9 - OBESITY, UNSPECIFIED Priority: Low Current Visit: No (11) Osteoarthritis SNOMED Code(s): 561000381 Code(s): M19.90 - UNSPECIFIED OSTEOARTHRITIS, UNSPECIFIED SITE Priority: High Current Visit: No Qualifiers: Osteoarthritis location: knee Osteoarthritis type: primary Laterality: left Qualified Code(s): M17.12 - Unilateral primary osteoarthritis, left knee (12) Osteoporosis SNOMED Code(s): 76482897 Code(s): M81.0 - AGE-RELATED OSTEOPOROSIS W/O CURRENT PATHOLOGICAL FRACTURE Priority: Medium Current Visit: No Qualifiers: Osteoporosis type: unspecified Presence of current pathological fracture: unspecified Qualified Code(s): M81.0 - Age-related osteoporosis without current pathological fracture (13) RLS (restless legs syndrome) SNOMED Code(s): 42621557 Code(s): G25.81 - RESTLESS LEGS SYNDROME Priority: Medium Current Visit: No (14) S/P total knee arthroplasty SNOMED Code(s): 1771647848889, 690063180, 4706427398148 Code(s): Z96.659 - PRESENCE OF UNSPECIFIED ARTIFICIAL KNEE JOINT Priority: High Current Visit: No Qualifiers: Laterality: left Qualified Code(s): Z96.652 - Presence of left artificial knee joint (15) Chronic low back pain SNOMED Code(s): 170201487 Code(s): M54.5 - LOW BACK PAIN; G89.29 - OTHER CHRONIC PAIN Priority: Low Current Visit: No Qualifiers: Back pain laterality: unspecified Sciatica presence: unspecified whether sciatica present Qualified Code(s): M54.5 - Low back pain; G89.29 - Other chronic pain (16) Type II diabetes mellitus SNOMED Code(s): 41056405 Code(s): E11.9 - TYPE 2 DIABETES MELLITUS WITHOUT COMPLICATIONS Priority: Medium Current Visit: No Qualifiers: Diabetes mellitus skilled nursing insulin use: without intermission coordinator use Diabetes mellitus complication status: with other specified complication Qualified Code (s): E11.69 - Type 2 diabetes mellitus with other specified complication (17) Hyperthyroidism SNOMED Code(s): 41486034 Code(s): E05.90 - THYROTOXICOSIS, UNSP WITHOUT THYROTOXIC CRISIS OR STORM Priority: Low Current Visit: No Problem List Initiated/Reviewed/Updated: Yes My Orders Last 24 Hours: My Active Orders 08/28/19 14:01 RT Aerosol Therapy [RC] ASDIRECTED Albuterol/Ipratropium [DuoNeb 3.0-0.5 MG/3 ML] 3 ml NEB Q6HRRT PRN Plan: I/P: Acute: S/P left total knee arthroplasty - post-operative day 1 -DVT prophylaxis and pain management per primary care team -PT/OT -IS/RT -Monitor oxygen saturation -Titrate oxygen as needed -Home medications reviewed -Vital signs stable -Monitor labs -Pre-operative Hgb was 13.0; Now 11.5 -Pre-operative GFR was >60; Now >60 Osteoarthritis of left knee -Pain management per primary care team Chronic: Asthma Type II DM Chronic low back pain HTN RLS HLD Depression Dysuria Edema Hematuria Osteoporosis Heart failure Hiatal hernia Osteoarthritis Obesity Bleeding disorder Hyperthyroidism Hx/o Nicanor fundoplication Plan: CM for discharge planning GI prophylaxis Home medications as indicated Other orders as listed above Routine AM labs She is a full code. Her PCP is Dr. Alex From a hospitalist standpoint Angela is doing well. She has been up ambulating and working with therapies. She is off of oxygen and has urinated. Labs and vital signs remain stable. She has been utilizing her IS. Pain is controlled. She is cleared for discharge pending primary team and PT/OT agreement. Thank you for allowing us to participate in the care of this patient!!
--- NOTE | 2019-08-29 08:58 | PCM.SURGPN ---
- General Info Date of Service: 08/29/19 POD#: 1 Functional Status: Reports: Pain Controlled, Tolerating Diet, Ambulating, Urinating, Incentive Spirometry, Other (The pt states she noted pain last night. Improvements noted this morning.) - Patient Data Vitals - Most Recent: Last Vital Signs Temp 97.5 F 08/29/19 08:00 Pulse 90 08/29/19 08:00 Resp 16 08/29/19 08:00 BP 152/72 H 08/29/19 08:00 Pulse Ox 93 L 08/29/19 08:00 Weight - Most Recent: 220 lb I&O - Last 24 Hours: Intake & Output 08/28/19 08/29/19 08/29/19 22:59 06:59 14:59 Intake Total 1320 Output Total 825 625 Balance 495 -625 Lab Results Last 24 Hrs: Laboratory Results - last 24 hr 08/29/19 08/29/19 Range/Units 05:52 05:52 WBC 8.65 (3.98-10.04) K/mm3 RBC 3.95 L (3.98-5.22) M/mm3 Hgb 11.5 D (11.2-15.7) gm/dl Hct 37.7 (34.1-44.9) % MCV 95.4 H (79.4-94.8) fl MCH 29.1 (25.6-32.2) pg MCHC 30.5 L (32.2-35.5) g/dl RDW Std Deviation 43.9 (36.4-46.3) fL Plt Count 285 D (182-369) K/mm3 MPV 9.3 L (9.4-12.3) fl Sodium 139 (136-145) mEq/L Potassium 4.1 (3.5-5.1) mEq/L Chloride 102 (98-107) mEq/L Carbon Dioxide 30 (21-32) mEq/L Anion Gap 11.1 (5-15) BUN 14 (7-18) mg/dL Creatinine 0.8 (0.55-1.02) mg/dL Est Cr Clr Drug Dosing 47.17 mL/min Estimated GFR (MDRD) > 60 (>60) mL/min BUN/Creatinine Ratio 17.5 (14-18) Glucose 121 H (83-115) mg/dL Calcium 8.8 (8.5-10.1) mg/dL Total Bilirubin 0.4 (0.2-1.0) mg/dL AST 15 (15-37) U/L ALT 21 (14-59) U/L Alkaline Phosphatase 87 (46-116) U/L Total Protein 7.1 (6.4-8.2) g/dl Albumin 3.0 L (3.4-5.0) g/dl Globulin 4.1 gm/dL Albumin/Globulin Ratio 0.7 L (1-2) Med Orders - Current: Current Medications Albuterol/Ipratropium (Duoneb 3.0-0.5 Mg/3 Ml) 3 ml NEB Q6HRRT PRN PRN Reason: wheezing/SOB/cough Bisacodyl (Dulcolax) 5 mg PO DAILY PRN PRN Reason: Constipation Cholecalciferol (Vitamin D3) 5,000 unit PO DAILY [facility] Cyclobenzaprine HCl (Flexeril) 5 mg PO BID PRN PRN Reason: Spasms Last Admin: 08/28/19 21:59 Dose: 5 mg Famotidine (Pepcid) 20 mg PO Q12H [facility] Last Admin: 08/28/19 21:57 Dose: 20 mg Gabapentin (Neurontin) 600 mg PO BID [facility] Last Admin: 08/28/19 23:22 Dose: 600 mg Levothyroxine Sodium (Levothyroxine) 25 mcg PO DAILY [facility] Last Admin: 08/29/19 08:35 Dose: 25 mcg Loratadine (Claritin) 10 mg PO DAILY [facility] Losartan Potassium (Cozaar) 100 mg PO DAILY [facility] Magnesium Hydroxide (Milk Of Magnesia) 30 ml PO BID PRN PRN Reason: Constipation Montelukast Sodium (Singulair) 10 mg PO BEDTIME [facility] Last Admin: 08/28/19 21:57 Dose: 10 mg Morphine Sulfate (Morphine) 2 mg IVPUSH Q2H PRN PRN Reason: Breakthrough Pain Last Admin: 08/29/19 00:31 Dose: 2 mg Naloxone HCl (Narcan) 0.1 mg IVPUSH Q5M PRN PRN Reason: Oversedation Non-Formulary Medication (Tiotropium) 1 puff INH ASDIRECTED [facility] Ondansetron HCl (Zofran) 4 mg IVPUSH Q6H PRN PRN Reason: Nausea/Vomiting Oxycodone/Acetaminophen (Percocet 325-5 Mg) 1 - 2 tab PO Q4H PRN PRN Reason: Pain Last Admin: 08/29/19 05:43 Dose: 2 tab Pramipexole Dihydrochloride (Mirapex) 1 mg PO BEDTIME [facility] Last Admin: 08/28/19 21:57 Dose: 1 mg Rivaroxaban (Xarelto) 10 mg PO DAILY [facility] Senna (Senna) 8.6 mg PO BID PRN PRN Reason: Constipation Senna/Docusate Sodium (Senna Plus) 2 tab PO DAILY [facility] Simvastatin (Zocor) 20 mg PO DAILY [facility] Discontinued Medications Acetaminophen (Tylenol) 975 mg PO ONETIME [facility] Stop: 08/28/19 16:00 Last Admin: 08/28/19 06:14 Dose: 975 mg Bupivacaine HCl (Sensorcaine-Mpf 0.25%) Confirm Administered Dose 30 ml .ROUTE .STK-MED ONE Stop: 08/28/19 06:13 Last Admin: 08/28/19 08:54 Dose: 30 ml Cefazolin Sodium (Ancef) Confirm Administered Dose 2 gm .ROUTE .STK-MED ONE Stop: 08/28/19 06:13 Last Admin: 08/28/19 08:48 Dose: 2 gm Cefazolin Sodium (Ancef) Confirm Administered Dose 2 gm .ROUTE .STK-MED ONE Stop: 08/28/19 07:19 Morphine Sulfate 8 mg/Epinephrine HCl 0.3 mg/Cefuroxime Sodium 750 mg/Ketorolac Tromethamine 30 mg/Sodium Chloride 7.9 ml 0 mg .XX ONETIME ONE Stop: 08/28/19 06:25 Last Admin: 08/28/19 08:54 Dose: 788.3 mg Denosumab (Prolia) 60 mg SUBCUT ASDIRECTED [facility] Docusate Sodium (Colace) 100 mg PO BID [facility] Epinephrine HCl (Adrenalin) Confirm Administered Dose 1 mg .ROUTE .STK-MED ONE Stop: 08/28/19 07:13 Epinephrine HCl (Adrenalin) Confirm Administered Dose 1 mg .ROUTE .STK-MED ONE Stop: 08/28/19 07:17 Fentanyl (Sublimaze) Confirm Administered Dose 100 mcg .ROUTE .STK-MED ONE Stop: 08/28/19 07:14 Lactated Ringer's (Ringers, Lactated) 1,000 mls @ 125 mls/hr IV ASDIRECTED [facility] Stop: 08/28/19 23:00 Last Admin: 08/28/19 06:40 Dose: 125 mls/hr Cefazolin Sodium/Dextrose 2 gm (/ Premix) 50 mls @ 100 mls/hr IV Q8H [facility] Stop: 08/29/19 07:44 Last Admin: 08/29/19 06:52 Dose: 100 mls/hr Iodine (Iodine 2% Mild Tincture) Confirm Administered Dose 30 ml .ROUTE .STK- MED ONE Stop: 08/28/19 06:13 Last Admin: 08/28/19 08:45 Dose: 18 ml Ketorolac Tromethamine (Toradol) 15 mg IVPUSH Q6H PRN PRN Reason: Pain Last Admin: 08/29/19 07:48 Dose: 15 mg Lidocaine HCl (Xylocaine-Mpf 1%) Confirm Administered Dose 5 ml .ROUTE .STK-MED ONE Stop: 08/28/19 07:46 Lidocaine/Sodium Bicarbonate (Buffered Lidocaine 1% In Ns 8.4%) 0.25 ml IDERM ONETIME PRN PRN Reason: Prior to IV Start Stop: 08/28/19 18:00 Last Admin: 08/28/19 06:15 Dose: 0.25 ml Midazolam HCl (Versed 1 Mg/Ml) Confirm Administered Dose 2 mg .ROUTE .STK-MED ONE Stop: 08/28/19 07:14 Miscellaneous Medication (Phenylephrine 1 Mg/10 Ml-Ns) Confirm Administered Dose 1 mg IV .STK-MED ONE Stop: 08/28/19 08:02 Miscellaneous Medication (Phenylephrine 1 Mg/10 Ml-Ns) Confirm Administered Dose 1 mg IV .STK-MED ONE Stop: 08/28/19 08:49 Non-Formulary Medication (Albuterol) 1 - 2 puff INH Q6H PRN PRN Reason: Shortness of Breath Oxycodone HCl (Oxycontin) 10 mg PO ONETIME [facility] Stop: 08/28/19 16:00 Last Admin: 08/28/19 06:14 Dose: 10 mg Pregabalin (Lyrica) 50 mg PO ONETIME [facility] Stop: 08/28/19 16:00 Last Admin: 08/28/19 06:14 Dose: 50 mg Propofol (Diprivan 20 Ml) Confirm Administered Dose 400 mg .ROUTE .STK-MED ONE Stop: 08/28/19 07:14 Ropivacaine (Naropin 0.5%) Confirm Administered Dose 30 ml .ROUTE .STK-MED ONE Stop: 08/28/19 07:13 Sodium Chloride (Saline Flush) 10 ml FLUSH ASDIRECTED PRN PRN Reason: Keep Vein Open Stop: 08/28/19 18:00 Tranexamic Acid (Cyklokapron) Confirm Administered Dose 1,000 mg .ROUTE .STK- MED ONE Stop: 08/28/19 06:13 Last Admin: 08/28/19 08:56 Dose: 1,000 mg Vancomycin HCl (Vancomycin) Confirm Administered Dose 1 gm .ROUTE .STK-MED ONE Stop: 08/28/19 06:13 Last Admin: 08/28/19 08:56 Dose: 1 gm - Exam Wound/Incisions: Dressing Dry and Intact General: Alert, Cooperative, No Acute Distress Lungs: Normal Respiratory Effort Extremities: Other (NVS intact for BLE. Jose Cruz's negative.) Sepsis Event Note - Evaluation Sepsis Screening Result: No Definite Risk - Focused Exam Vital Signs: Vital Signs Temp Temp Pulse Pulse Resp BP BP 08/29/19 08:00 97.5 F 90 16 152/72 H 08/29/19 05:59 86 08/29/19 05:57 81 160/79 H 08/29/19 05:52 85 162/76 H 08/29/19 05:51 82 167/83 H 08/29/19 05:47 97.9 F 87 16 163/130 H 08/29/19 01:00 97.6 F 91 14 129/62 08/29/19 00:55 87 129/62 08/28/19 22:46 96 08/28/19 22:45 98 150/78 H 08/28/19 22:17 87 08/28/19 22:15 94 08/28/19 22:14 98.2 F 96 16 159/79 H Pulse Ox 08/29/19 08:00 93 L 08/29/19 05:59 99 08/29/19 05:57 99 08/29/19 05:52 98 08/29/19 05:51 99 08/29/19 05:47 98 08/29/19 01:00 95 08/29/19 00:55 98 08/28/19 22:46 97 08/28/19 22:45 95 08/28/19 22:17 97 08/28/19 22:15 99 08/28/19 22:14 99 Date Exam was Performed: 08/29/19 Time Exam was Performed: 08:56 - Problem List Review Problem List Initiated/Reviewed/Updated: Yes - My Orders Last 24 Hours: Active Orders 24 hr Category Date Time Status Communication Order [RC] ASDIRECTED Care 08/28/19 08:16 Active Communication Order [RC] ASDIRECTED Care 08/29/19 08:51 Active Cooling Warming Measures [RC] ASDIRECTED Care 08/28/19 08:16 Inactive Pulse Oximetry [RC] ASDIRECTED Care 08/28/19 08:16 Active RT Aerosol Therapy [RC] ASDIRECTED Care 08/28/19 14:01 Active Ready for Discharge [RC] PER UNIT ROUTINE Care 08/29/19 08:50 Active [employer] Diet [DIET] Diet 08/28/19 Lunch Active Albuterol/Ipratropium [DuoNeb 3.0-0.5 MG/3 ML] Med 08/28/19 14:01 Active 3 ml NEB Q6HRRT PRN Cholecalciferol (Vitamin D3) [Vitamin D3] Med 08/29/19 09:00 Active 5,000 unit PO DAILY Docusate Sodium/Sennosides [Senna Plus] Med 08/29/19 09:00 Active 2 tab PO DAILY Famotidine [Pepcid] Med 08/28/19 21:00 Active 20 mg PO Q12H Gabapentin [Neurontin] Med 08/28/19 21:00 Active 600 mg PO BID Levothyroxine Med 08/29/19 09:00 Active 25 mcg PO DAILY Loratadine [Claritin] Med 08/29/19 09:00 Active 10 mg PO DAILY Losartan [Cozaar] Med 08/29/19 09:00 Active 100 mg PO DAILY Montelukast [Singulair] Med 08/28/19 21:00 Active 10 mg PO BEDTIME Pramipexole [Mirapex] Med 08/28/19 21:00 Active 1 mg PO BEDTIME Rivaroxaban [Xarelto] Med 08/29/19 09:00 Active 10 mg PO DAILY Simvastatin [Zocor] Med 08/29/19 09:00 Active 20 mg PO DAILY Tiotropium Med 08/28/19 13:15 Pending 1 puff INH ASDIRECTED Medication Orders Albuterol/Ipratropium (Duoneb 3.0-0.5 Mg/3 Ml) 3 ml NEB Q6HRRT PRN PRN Reason: wheezing/SOB/cough Bisacodyl (Dulcolax) 5 mg PO DAILY PRN PRN Reason: Constipation Cholecalciferol (Vitamin D3) 5,000 unit PO DAILY [facility] Cyclobenzaprine HCl (Flexeril) 5 mg PO BID PRN PRN Reason: Spasms Last Admin: 08/28/19 21:59 Dose: 5 mg Admin: 08/28/19 11:40 Dose: 5 mg Famotidine (Pepcid) 20 mg PO Q12H [facility] Last Admin: 08/28/19 21:57 Dose: 20 mg Gabapentin (Neurontin) 600 mg PO BID [facility] Last Admin: 08/28/19 23:22 Dose: 600 mg Levothyroxine Sodium (Levothyroxine) 25 mcg PO DAILY [facility] Last Admin: 08/29/19 08:35 Dose: 25 mcg Loratadine (Claritin) 10 mg PO DAILY [facility] Losartan Potassium (Cozaar) 100 mg PO DAILY [facility] Magnesium Hydroxide (Milk Of Magnesia) 30 ml PO BID PRN PRN Reason: Constipation Montelukast Sodium (Singulair) 10 mg PO BEDTIME [facility] Last Admin: 08/28/19 21:57 Dose: 10 mg Morphine Sulfate (Morphine) 2 mg IVPUSH Q2H PRN PRN Reason: Breakthrough Pain Last Admin: 08/29/19 00:31 Dose: 2 mg Naloxone HCl (Narcan) 0.1 mg IVPUSH Q5M PRN PRN Reason: Oversedation Non-Formulary Medication (Tiotropium) 1 puff INH ASDIRECTED [facility] Ondansetron HCl (Zofran) 4 mg IVPUSH Q6H PRN PRN Reason: Nausea/Vomiting Oxycodone/Acetaminophen (Percocet 325-5 Mg) 1 - 2 tab PO Q4H PRN PRN Reason: Pain Last Admin: 08/29/19 05:43 Dose: 2 tab Admin: 08/29/19 01:48 Dose: 2 tab Admin: 08/28/19 21:57 Dose: 2 tab Admin: 08/28/19 17:55 Dose: 2 tab Admin: 08/28/19 11:42 Dose: 2 tab Pramipexole Dihydrochloride (Mirapex) 1 mg PO BEDTIME [facility] Last Admin: 08/28/19 21:57 Dose: 1 mg Rivaroxaban (Xarelto) 10 mg PO DAILY [facility] Senna (Senna) 8.6 mg PO BID PRN PRN Reason: Constipation Senna/Docusate Sodium (Senna Plus) 2 tab PO DAILY [facility] Simvastatin (Zocor) 20 mg PO DAILY [facility] - Assessment Assessment (Free Text/Narrative):: POD#1 - left TKA - Plan Plan (Free Text/Narrative):: 1. Hgb 11.5. 2. Xarelto 10mg PO daily x 40 days. Personal hx VTE. 3. Discharge to home today. 4. Outpatient therapy. The pt's case was discussed with Dr. Coyne.
[2019-08-29] MEDS: Gabapentin 600 MG Tab PO SCH (08:59)
[2019-08-29] MEDS: Famotidine 20 MG Tab PO SCH (08:59)
[2019-08-29] MEDS ORDERED: Levothyroxine 25 MCG Tab PO SCH (09:00)
[2019-08-29] MEDS ORDERED: Cholecalciferol (Vitamin D3) 5,000 UNIT Tab PO SCH (09:00)
[2019-08-29] MEDS ORDERED: Rivaroxaban 10 MG Tab PO SCH (09:00)
[2019-08-29] MEDS ORDERED: Losartan 100 MG Tab PO SCH (09:00)
[2019-08-29] MEDS ORDERED: Simvastatin 20 MG Tab PO SCH (09:00)
[2019-08-29] MEDS ORDERED: Loratadine 10 MG Tab PO SCH (09:00)
--- NOTE | 2019-08-29 09:25 | PCM48HPAN ---
Post Anesthesia Note - EVALUATION WITHIN 48HRS OF ANESTHETIC Vital Signs in Normal Range: Yes Patient Participated in Evaluation: Yes Respiratory Function Stable: Yes Airway Patent: Yes Cardiovascular Function Stable: Yes Hydration Status Stable: Yes Pain Control Satisfactory: Yes Nausea and Vomiting Control Satisfactory: Yes Mental Status Recovered: Yes Vital Signs: Last Vital Signs Temp 97.5 F 08/29/19 08:00 Pulse 90 08/29/19 08:00 Resp 16 08/29/19 08:00 BP 152/72 H 08/29/19 08:59 Pulse Ox 93 L 08/29/19 08:00 - COMMENTS/OBSERVATIONS Free Text/Narrative:: Sitting up in bed. she complained that she had to get up so frequently last night to go to the bathroom and when she did her knee really hurt.
--- NOTE | 2019-08-31 07:23 | PCM.OPNOTE ---
- General Post-Op/Procedure Note Date of Surgery/Procedure: 08/28/19 Operative Procedure(s): left total knee arthroplasty Pre Op Diagnosis: left knee osteoarthrosis Post-Op Diagnosis: Same Anesthesia Technique: Local, MAC, Spinal Primary Surgeon: Micky Coyne Anesthesia Provider: Francisco Iqbal Wood Heel Flap Inserter: Beverley Curran Wood Heel Flap Inserter: Alexandra Pagan in mLs: 5 Complications: None Condition: Good Free Text/Narrative:: / 9mm 32x10
--- NOTE | 2019-08-31 12:41 | PCM.DCSUM1 ---
Discharge Summary - Hospital Course Brief History: Angela is a 79 yo female who underwent left TKA with Dr. Coyne on 08-29-2019. The procedure was completed under spinal anesthesia with MAC. The pt tolerated the procedure well and was admitted to the [facility] under Medical-Surgical status. The pt received Ancef aimee-operatively. She participated in P.T. and O.T. and progressed well. She was allowed to WBAT and used a FWW for mobility. The pt's surgical wound was dressed with a Mepilex dressing and remained clean and dry. On POD#1, the pt was started on Xarelto 10mg PO daily for VTE prophylaxis. The pt used TEDs and SCDs also. On POD#1, the pt's hemoglobin was 11.5. Medical management was provided by the Hospitalist service and the pt's hospital course was uneventful. On POD#1, the pt was deemed appropriate for discharge to home with as she was medically stable and had met inpt therapy goals. - Discharge Data Discharge Date: 08/29/19 Discharge Disposition: Home, Self-Care 01 Condition: Good - Referral to Home Health Primary Care Physician: Arsen Patel MD - Patient Summary/Data Operative Procedure(s) Performed: left total knee arthroplasty Consults: Consultations 08/28/19 06:23 OT Evaluation and Treatment [CONS] Routine PT Evaluation and Treatment [CONS] Routine 08/28/19 06:24 Consult to Physician [CONS] Routine - Patient Instructions Diet: Diabetic Diet Activity: Apply Ice, Elevate Extremity Activity, Other: up q 1hour Driving: Do Not Drive Showering/Bathing: May Shower Wound/Incision Care: Keep Operative Site/Wound Site Clean and Dry, Do NOT Change Dressing Notify Provider of: Fever, Increased Pain, Swelling and Redness, Drainage, Nausea and/or Vomiting Other/Special Instructions: Please get up and moving around EVERY HOUR while awake. This helps to prevent blood clots. Please use your walker and have help with mobility as needed. Take a short walk in your home every hour while awake. Please take Xarelto daily as directed. At home, please complete the exercises that you learned during the Hospital stay. Schedule for physical therapy. Use the pain medication as needed. The medication may cause drowsiness and constipation. Contact your primary care provider for instructions if you are constipated. You may use a stool softener like docusate sodium or Colace 100mg twice daily and/or a laxative like Miralax daily for constipation. Increase your water and fiber intake while you are using the pain medication. Discontinue use of the pain medication as soon as able. Please do not use other medications that may cause drowsiness (other pain medications, anxiety pills, cold medications, sleeping pills, etc) while using the prescription pain medication. Do not use alcohol while using the pain medication. You may use acetaminophen or Tylenol for pain management, however, please ensure you are not using over 4000 mg or 4 grams of acetaminophen per day from all sources. Your pain medication has 325mg of acetaminophen per tablet. At this time, please do not use ibuprofen (Motrin, Advil) or naproxen (Aleve) for pain management as you are using the Xarelto. When the Xarelto course is completed in 6 weeks, you could use ibuprofen or naproxen for pain management (if this is allowed by your primary care provider) . Wear the ELSY hose during the day and you may remove these at night. Elevate the limb to decrease swelling. Place ice to the area often. Place a towel between your skin and the blue pad. Use the incentive spirometer often. Take deep breaths throughout the day. Please keep the dressing in place until follow -up. Notify the Clinic if the dressing becomes saturated. Increase your protein intake while you are healing. Please closely monitor your blood sugars and notify your primary care provider with abnormal values. Elevated blood sugars increases the risk of infection. Call the Clinic with questions or concerns - [phone]. - Discharge Plan *PRESCRIPTION DRUG MONITORING PROGRAM REVIEWED*: No *COPY OF PRESCRIPTION DRUG MONITORING REPORT IN PATIENT BLANCA: No Prescriptions/Med Rec: Acetaminophen/oxyCODONE [Percocet 325-5 MG] 1 - 2 tab PO Q4H PRN #60 tablet PRN Reason: Pain Cyclobenzaprine [Flexeril] 5 mg PO BID PRN #20 tablet PRN Reason: Spasms Rivaroxaban [Xarelto] 10 mg PO DAILY #40 tablet Home Medications: Home Meds Denosumab [Prolia] 60 mg SUBCUT ASDIRECTED 04/02/17 [History] Albuterol [Ventolin HFA] 1 - 2 puff INH Q6H PRN 12/24/18 [History] Bumetanide 1 mg PO DAILY 12/24/18 [History] Cetirizine HCl [Zyrtec] 10 mg PO DAILY 12/24/18 [History] Gabapentin [Neurontin] 600 mg PO BID 12/24/18 [History] Montelukast [Singulair] 10 mg PO BEDTIME 12/24/18 [History] Pramipexole Di-HCl [Mirapex] 1 mg PO BEDTIME 12/24/18 [History] Sennosides/Docusate Sodium [Senna-Docusate Sodium Tablet] 2 tab PO DAILY [History] atorvaSTATin [Lipitor] 20 mg PO DAILY 12/24/18 [History] Cholecalciferol (Vitamin D3) [Vitamin D3] 5,000 unit PO DAILY 08/25/19 [History] Levothyroxine 25 mcg PO DAILY 08/25/19 [History] Losartan Potassium 100 mg PO DAILY 08/25/19 [History] hydroCHLOROthiazide [Hydrochlorothiazide] 12.5 mg PO DAILY 08/25/19 [History] Tiotropium [Spiriva HandiHaler] 1 puff INH BID 08/28/19 [History] Acetaminophen/oxyCODONE [Percocet 325-5 MG] 1 - 2 tab PO Q4H PRN #60 tablet 04/09 [Rx] Cyclobenzaprine [Flexeril] 5 mg PO BID PRN #20 tablet 08/29/19 [Rx] Famotidine [Pepcid] 20 mg PO Q12H tablet 08/29/19 [Rx] Magnesium Hydroxide [Milk of Magnesia] 30 ml PO BID PRN cup 08/29/19 [Rx] Rivaroxaban [Xarelto] 10 mg PO DAILY #40 tablet 08/29/19 [Rx] Sennosides [Senna] 8.6 mg PO BID PRN tablet 08/29/19 [Rx] bisacodyL [Dulcolax] 5 mg PO DAILY PRN tablet 08/29/19 [Rx] Patient Handouts: Rivaroxaban oral tablets, Total Knee Replacement, Easy-to- Read Referrals: Beverley Curran PA-C [Physician Advertising Copywriter] - Arsen Patel MD [Primary Care Provider] - - Discharge Summary/Plan Comment DC Time >30 min.: No - Patient Data Vitals - Most Recent: Last Vital Signs Temp 97.5 F 08/29/19 08:00 Pulse 90 08/29/19 08:00 Resp 16 08/29/19 08:00 BP 152/72 H 08/29/19 08:59 Pulse Ox 93 L 08/29/19 08:00 Weight - Most Recent: 220 lb Med Orders - Current: Current Medications Discontinued Medications Acetaminophen (Tylenol) 975 mg PO ONETIME [facility] Stop: 08/28/19 16:00 Last Admin: 08/28/19 06:14 Dose: 975 mg Albuterol/Ipratropium (Duoneb 3.0-0.5 Mg/3 Ml) 3 ml NEB Q6HRRT PRN PRN Reason: wheezing/SOB/cough Bisacodyl (Dulcolax) 5 mg PO DAILY PRN PRN Reason: Constipation Bupivacaine HCl (Sensorcaine-Mpf 0.25%) Confirm Administered Dose 30 ml .ROUTE .STK-MED ONE Stop: 08/28/19 06:13 Last Admin: 08/28/19 08:54 Dose: 30 ml Cefazolin Sodium (Ancef) Confirm Administered Dose 2 gm .ROUTE .STK-MED ONE Stop: 08/28/19 06:13 Last Admin: 08/28/19 08:48 Dose: 2 gm Cefazolin Sodium (Ancef) Confirm Administered Dose 2 gm .ROUTE .STK-MED ONE Stop: 08/28/19 07:19 Cholecalciferol (Vitamin D3) 5,000 unit PO DAILY [facility] Last Admin: 08/29/19 09:00 Dose: 5,000 unit Morphine Sulfate 8 mg/Epinephrine HCl 0.3 mg/Cefuroxime Sodium 750 mg/Ketorolac Tromethamine 30 mg/Sodium Chloride 7.9 ml 0 mg .XX ONETIME ONE Stop: 08/28/19 06:25 Last Admin: 08/28/19 08:54 Dose: 788.3 mg Cyclobenzaprine HCl (Flexeril) 5 mg PO BID PRN PRN Reason: Spasms Last Admin: 08/28/19 21:59 Dose: 5 mg Denosumab (Prolia) 60 mg SUBCUT ASDIRECTED [facility] Docusate Sodium (Colace) 100 mg PO BID [facility] Epinephrine HCl (Adrenalin) Confirm Administered Dose 1 mg .ROUTE .STK-MED ONE Stop: 08/28/19 07:13 Epinephrine HCl (Adrenalin) Confirm Administered Dose 1 mg .ROUTE .K-MED ONE Stop: 08/28/19 07:17 Famotidine (Pepcid) 20 mg PO Q12H [facility] Last Admin: 08/29/19 08:59 Dose: 20 mg Fentanyl (Sublimaze) Confirm Administered Dose 100 mcg .ROUTE .K-MED ONE Stop: 08/28/19 07:14 Gabapentin (Neurontin) 600 mg PO BID [facility] Last Admin: 08/29/19 08:59 Dose: 600 mg Lactated Ringer's (Ringers, Lactated) 1,000 mls @ 125 mls/hr IV ASDIRECTED [facility] Stop: 08/28/19 23:00 Last Admin: 08/28/19 06:40 Dose: 125 mls/hr Cefazolin Sodium/Dextrose 2 gm (/ Premix) 50 mls @ 100 mls/hr IV Q8H [facility] Stop: 08/29/19 07:44 Last Admin: 08/29/19 06:52 Dose: 100 mls/hr Iodine (Iodine 2% Mild Tincture) Confirm Administered Dose 30 ml .ROUTE .[facility] ONE Stop: 08/28/19 06:13 Last Admin: 08/28/19 08:45 Dose: 18 ml Ketorolac Tromethamine (Toradol) 15 mg IVPUSH Q6H PRN PRN Reason: Pain Last Admin: 08/29/19 07:48 Dose: 15 mg Levothyroxine Sodium (Levothyroxine) 25 mcg PO DAILY [facility] Last Admin: 08/29/19 08:35 Dose: 25 mcg Lidocaine HCl (Xylocaine-Mpf 1%) Confirm Administered Dose 5 ml .ROUTE .STK-MED ONE Stop: 08/28/19 07:46 Lidocaine/Sodium Bicarbonate (Buffered Lidocaine 1% In Ns 8.4%) 0.25 ml IDERM ONETIME PRN PRN Reason: Prior to IV Start Stop: 08/28/19 18:00 Last Admin: 08/28/19 06:15 Dose: 0.25 ml Loratadine (Claritin) 10 mg PO DAILY [facility] Last Admin: 08/29/19 08:59 Dose: 10 mg Losartan Potassium (Cozaar) 100 mg PO DAILY [facility] Last Admin: 08/29/19 08:59 Dose: 100 mg Magnesium Hydroxide (Milk Of Magnesia) 30 ml PO BID PRN PRN Reason: Constipation Midazolam HCl (Versed 1 Mg/Ml) Confirm Administered Dose 2 mg .ROUTE .STK-MED ONE Stop: 08/28/19 07:14 Miscellaneous Medication (Phenylephrine 1 Mg/10 Ml-Ns) Confirm Administered Dose 1 mg IV .STK-MED ONE Stop: 08/28/19 08:02 Miscellaneous Medication (Phenylephrine 1 Mg/10 Ml-Ns) Confirm Administered Dose 1 mg IV .STK-MED ONE Stop: 08/28/19 08:49 Montelukast Sodium (Singulair) 10 mg PO BEDTIME [facility] Last Admin: 08/28/19 21:57 Dose: 10 mg Morphine Sulfate (Morphine) 2 mg IVPUSH Q2H PRN PRN Reason: Breakthrough Pain Last Admin: 08/29/19 00:31 Dose: 2 mg Naloxone HCl (Narcan) 0.1 mg IVPUSH Q5M PRN PRN Reason: Oversedation Non-Formulary Medication (Albuterol) 1 - 2 puff INH Q6H PRN PRN Reason: Shortness of Breath Non-Formulary Medication (Tiotropium) 1 puff INH ASDIRECTED [facility] Ondansetron HCl (Zofran) 4 mg IVPUSH Q6H PRN PRN Reason: Nausea/Vomiting Oxycodone HCl (Oxycontin) 10 mg PO ONETIME [facility] Stop: 08/28/19 16:00 Last Admin: 08/28/19 06:14 Dose: 10 mg Oxycodone/Acetaminophen (Percocet 325-5 Mg) 1 - 2 tab PO Q4H PRN PRN Reason: Pain Last Admin: 08/29/19 10:46 Dose: 2 tab Pramipexole Dihydrochloride (Mirapex) 1 mg PO BEDTIME [facility] Last Admin: 08/28/19 21:57 Dose: 1 mg Pregabalin (Lyrica) 50 mg PO ONETIME [facility] Stop: 08/28/19 16:00 Last Admin: 08/28/19 06:14 Dose: 50 mg Propofol (Diprivan 20 Ml) Confirm Administered Dose 400 mg .ROUTE .STK-MED ONE Stop: 08/28/19 07:14 Rivaroxaban (Xarelto) 10 mg PO DAILY [facility] Last Admin: 08/29/19 09:00 Dose: 10 mg Ropivacaine (Naropin 0.5%) Confirm Administered Dose 30 ml .ROUTE .STK-MED ONE Stop: 08/28/19 07:13 Senna (Senna) 8.6 mg PO BID PRN PRN Reason: Constipation Senna/Docusate Sodium (Senna Plus) 2 tab PO DAILY [facility] Last Admin: 08/29/19 09:00 Dose: 2 tab Simvastatin (Zocor) 20 mg PO DAILY [facility] Last Admin: 08/29/19 09:00 Dose: 20 mg Sodium Chloride (Saline Flush) 10 ml FLUSH ASDIRECTED PRN PRN Reason: Keep Vein Open Stop: 08/28/19 18:00 Tranexamic Acid (Cyklokapron) Confirm Administered Dose 1,000 mg .ROUTE .STK- MED ONE Stop: 08/28/19 06:13 Last Admin: 08/28/19 08:56 Dose: 1,000 mg Vancomycin HCl (Vancomycin) Confirm Administered Dose 1 gm .ROUTE .STK-MED ONE Stop: 08/28/19 06:13 Last Admin: 08/28/19 08:56 Dose: 1 gm
--- NOTE | 2019-08-31 12:54 | OR ---
DATE OF OPERATION: 08/28/2019 SURGEON: Micky Coyne MD OPERATION PERFORMED: Left total knee arthroplasty. PREOPERATIVE DIAGNOSIS: Left knee osteoarthrosis. POSTOPERATIVE DIAGNOSIS: Left knee osteoarthrosis. ANESTHESIA: Local MAC with spinal. ANESTHESIA PROVIDER: Francisco Iqbal CRNA ASSISTANTS: 1. Beverley Curran PA-C. 2. Alexandra Pagan LPN. ESTIMATED BLOOD LOSS: 5 mL. COMPLICATIONS: None. CONDITION: Stable. IMPLANTS: 1. [place] size 4 cemented PS femur. 2. Dot size 4 cemented universal tibial baseplate. 3. Dot size 4, 9 mm PS X3 polyethylene. 4. Dot size 32 x 10 mm cemented asymmetric patella. DESCRIPTION OF PROCEDURE: The patient was identified in the preop holding area. Proper site was marked and identified by the surgeon. The patient was taken back to the operating theater. After adequate anesthesia, the patient's left lower extremity had a nonsterile tourniquet applied and it was sterilely prepped and draped in the usual sterile fashion. OR time-out was performed. The patient received 2 g IV Ancef. At this time, the left lower extremity was exsanguinated. Tourniquet was insufflated to 300 mmHg. Standard medial parapatellar incision was made. Medial parapatellar arthrotomy was created. Deep fibers of the MCL were raised and anterior fat pad was resected. At this time, attention was turned to the patella. Patella measured 23, it was resected to a 13 for a 32 x 10 mm patella. Drill holes were then drilled and found to be in adequate position. The drill was then drilled in the distal femur and the intramedullary distal femoral cutting guide was then placed. 8 mm was resected off the distal femur and was found to be an adequate resection. Sizing guide was placed. It was found to be a size 4 cemented PS femur that was shown on the implant record at the beginning of this dictation. The drill holes were drilled for the epicondylar axis using Whitesides line and epicondyles as reference. At this time, the 4-in-1 cutting block was placed. An anterior posterior and anterior and posterior chamfer cuts were then completed. Box cut was completed at this time. Attention was turned to the tibia. The posterior medial lateral retractors were placed. The intramedullary tibial guide was placed. It was placed in the old footprint of the ACL. It was aligned with the center of the ankle and 0 degrees of slope, 9 mm was then resected off the unaffected side. There was found to be an acceptable reduction. At this time, posterior osteophytes were removed along with medial and lateral meniscus. A trial implant was placed with a correct sized tibia that was mentioned at the beginning of the dictation. A [place] size 4, 9 mm PS X3 polyethylene insert was then placed. The patient's knee was brought through range of motion. The patella was tracking centrally and was stable to varus and valgus stress. Alignment was found to be roughly at 0 degrees. The tibia was stamped and drilled in proper rotation. The universal tibial base plate was impacted in place. Next, the [place] size 4 cemented PS femur impacted into place and the Dot size 4, 9 mm PS X3 polyethylene insert was placed. The patient's knee was brought into full extension. The patella was then cemented in place at this time. One liter dilute Betadine solution was irrigated through the knee along with 3 L of pulse lavage irrigation with Ancef. Periarticular injection was then completed. The patient's knee was brought through a range of motion. Once the cement had time to set up and it was found to be stable to varus valgus stress, the patella was tracking centrally with full range of motion. At this time, a #2 barbed suture was used for closure of the medial parapatellar arthrotomy. Topical tranexamic acid was placed. 2-0 Vicryl was used subcutaneously, Prineo was used for the skin. The patient tolerated the procedure well and was sent to the PACU in stable condition. MMODAL /[id number] CHRISTOPH
== END 2019-08-29 11:15 | disposition home or self-care (01) | DRG 470 ==
LOC: JD.OB 06:07 → EDSTATUS 07:30 → JD.MS 08-29 11:15 → UNDODISIN 08-29 11:15
PROVIDERS: ADMIT Orthopaedic Surgery; ATTEND Orthopaedic Surgery
PROC: 0SRD0J9 Replacement of Left Knee Joint with Synthetic Substitute, Cemented, Open Approach (ICD-10-PCS; principal; 2019-08-28)
DX: M17.12 Unilateral primary osteoarthritis, left knee (principal); J45.909 Unspecified asthma, uncomplicated; E11.9 Type 2 diabetes mellitus without complications; G25.81 Restless legs syndrome; M81.0 Age-related osteoporosis without current pathological fracture; M54.5 Low back pain; G89.29 Other chronic pain; E78.5 Hyperlipidemia, unspecified; I11.0 Hypertensive heart disease with heart failure; I50.9 Heart failure, unspecified; E66.9 Obesity, unspecified; H54.7 Unspecified visual loss; Z96.651 Presence of right artificial knee joint; K59.09 Other constipation; F32.89 Other specified depressive episodes; Z98.890 Other specified postprocedural states; Z99.81 Dependence on supplemental oxygen; Z88.5 Allergy status to narcotic agent; Z88.2 Allergy status to sulfonamides; Z88.1 Allergy status to other antibiotic agents; Z88.8 Allergy status to other drugs, medicaments and biological substances; Z79.51 Long term (current) use of inhaled steroids; Z79.899 Other long term (current) drug therapy; Z90.710 Acquired absence of both cervix and uterus; Z90.721 Acquired absence of ovaries, unilateral; Z87.891 Personal history of nicotine dependence; Z68.39 Body mass index [BMI] 39.0-39.9, adult
CPT/HCPCS: 01402; 36415; 64450; 73560-26-LT; 73560-LT; 80053; 85027; 85610; 85730; 87641; 97110-GP; 97116-GP; 97161-GP; 97165-GO; 97530-GO; 97535-GO; 99222; 99232; A9270-GY; C1713; C1776; J0171; J0690; J0697; J1885; J2001; J2250; J2270; J2370; J2704; J2795; J3010; J3370; J3490; J7120

== ENCOUNTER 2019-08-29 18:06 | Inpatient (IN) | payer MEDICARE, OTHER ==
[2019-08-29] MEDS ORDERED: Acetaminophen/oxyCODONE 325-5 MG Tab PO ONE (18:56)
[2019-08-29] MEDS ORDERED: Sodium Chloride 0.9% 10 ML Syringe FLUSH PRN (20:06)
[2019-08-29] MEDS ORDERED: Cyclobenzaprine 10 MG Tab PO PRN ×2 (22:20→23:12)
[2019-08-29] MEDS: Acetaminophen/oxyCODONE 325-5 MG Tab PO PRN (22:59)
[2019-08-30] MEDS: Acetaminophen/oxyCODONE 325-5 MG Tab PO PRN ×6 (03:25→23:05)
--- NOTE | 2019-08-30 16:10 | EDM.PDOC ---
ED HPI GENERAL MEDICAL PROBLEM - General Chief Complaint: Lower Extremity Injury/Pain Stated Complaint: KNEE SURGERY TODAY HAVING MEDICATION ISSUES Time Seen by Provider: 08/29/19 18:41 Source of Information: Reports: Patient, Family History Limitations: Reports: No Limitations - History of Present Illness INITIAL COMMENTS - FREE TEXT/NARRATIVE: Patient is a 79-year-old female who presents to the emergency department with her son, daughter, and [id number] with complaints of pain and weakness. Patient did have a left total knee replacement done yesterday by Dr. Coyne. She was discharged from the hospital a few hours prior to their return. Daughter states that the patient has been unable to walk due to muscle weakness. She had an episode where she fell down to her knees and her daughter had to catch her which caused her daughter to strain her back. Family states that she is overall weak. She has difficulty even lifting a glass to her mouth to drink due to weakness and tremors. patient also has increased pain to that left knee. She had 2 Percocet this morning around 8:00. She did have 1 Percocet about 1: 00 this afternoon, however they are hesitant to give her too much medication of either her Percocet or Flexeril as this makes her more weak. Patient and her family are requesting that she be admitted as they do not feel she is safe at home and that she may fall and further injure herself. Left Knee Pain Score (Numeric/FACES): 3 - Related Data Allergies Allergy/AdvReac Type Severity Reaction Status Date / Time cephalexin Allergy Hives Verified 08/29/19 21:46 codeine Allergy Hives Verified 08/29/19 21:46 nitrofurantoin Allergy Rash Verified 08/29/19 21:46 sulfacetamide Allergy Hives Verified 08/29/19 21:46 Home Meds: Home Meds Denosumab [Prolia] 60 mg SUBCUT ASDIRECTED 04/02/17 [History] Albuterol [Ventolin HFA] 1 - 2 puff INH Q6H PRN 12/24/18 [History] Bumetanide 1 mg PO DAILY 12/24/18 [History] Cetirizine HCl [Zyrtec] 10 mg PO DAILY 12/24/18 [History] Gabapentin [Neurontin] 600 mg PO BID 12/24/18 [History] Montelukast [Singulair] 10 mg PO BEDTIME 12/24/18 [History] Pramipexole Di-HCl [Mirapex] 1 mg PO BEDTIME 12/24/18 [History] Sennosides/Docusate Sodium [Senna-Docusate Sodium Tablet] 2 tab PO DAILY [History] atorvaSTATin [Lipitor] 20 mg PO DAILY 12/24/18 [History] Cholecalciferol (Vitamin D3) [Vitamin D3] 5,000 unit PO DAILY 08/25/19 [History] Levothyroxine 25 mcg PO DAILY 08/25/19 [History] Losartan Potassium 100 mg PO DAILY 08/25/19 [History] hydroCHLOROthiazide [Hydrochlorothiazide] 12.5 mg PO DAILY 08/25/19 [History] Tiotropium [Spiriva HandiHaler] 1 puff INH ASDIRECTED 08/28/19 [History] Acetaminophen/oxyCODONE [Percocet 325-5 MG] 1 - 2 tab PO Q4H PRN #60 tablet 04/09 [Rx] Cyclobenzaprine [Flexeril] 5 mg PO BID PRN #20 tablet 08/29/19 [Rx] Famotidine [Pepcid] 20 mg PO Q12H tablet 08/29/19 [Rx] Magnesium Hydroxide [Milk of Magnesia] 30 ml PO BID PRN cup 08/29/19 [Rx] Rivaroxaban [Xarelto] 10 mg PO DAILY #40 tablet 08/29/19 [Rx] Sennosides [Senna] 8.6 mg PO BID PRN tablet 08/29/19 [Rx] bisacodyL [Dulcolax] 5 mg PO DAILY PRN tablet 08/29/19 [Rx] Past Medical History HEENT History: Reports: Allergic Rhinitis, Impaired Vision Cardiovascular History: Reports: Heart Failure, High Cholesterol, Hypertension, Other (See Below) Other Cardiovascular History: chest pain, edema Respiratory History: Reports: Asthma Gastrointestinal History: Reports: Hiatal Hernia Genitourinary History: Reports: Other (See Below) Other Genitourinary History: dysuria, hematuria [employer] History: Reports: Musculoskeletal History: Reports: Arthritis, Back Pain, Chronic, Osteoarthritis , Osteoporosis, Other (See Below) Other Musculoskeletal History: knee pain, back pain, restless leg syndrome Neurological History: Reports: None Psychiatric History: Reports: Depression Endocrine/Metabolic History: Reports: Obesity/BMI 30+ Hematologic History: Reports: Bleeding Disorder Immunologic History: Reports: None Oncologic (Cancer) History: Reports: None Dermatologic History: Reports: None - Past Surgical History Head Surgeries/Procedures: Reports: None Cardiovascular Surgical History: Reports: None Respiratory Surgical History: Reports: None GI Surgical History: Reports: Nicanor Fundoplication Female Surgical History: Reports: Hysterectomy Other Female Surgeries/Procedures: Bladder surgery Endocrine Surgical History: Reports: None Neurological Surgical History: Reports: Lumbar Spine Musculoskeletal Surgical History: Reports: Knee Replacement Oncologic Surgical History: Reports: None Dermatological Surgical History: Reports: None Social & Family History - Family History Family Medical History: Noncontributory - Tobacco Use Smoking Status *Q: Former Smoker Used Tobacco, but Quit: Yes Month/Year Tobacco Last Used: 1979 - Caffeine Use Caffeine Use: Reports: Coffee - Recreational Drug Use Recreational Drug Use: No Review of Systems - Review of Systems Review Of Systems: See Below Constitutional: Reports: Weakness. Denies: Chills, Fever Eyes: Reports: No Symptoms Ears: Reports: No Symptoms Nose: Reports: No Symptoms Mouth/Throat: Reports: No Symptoms Respiratory: Reports: No Symptoms Cardiovascular: Reports: No Symptoms GI/Abdominal: Reports: No Symptoms Genitourinary: Reports: No Symptoms Musculoskeletal: Reports: Other (Generalized left leg pain and weakness) Skin: Reports: No Symptoms Neurological: Reports: No Symptoms Psychiatric: Reports: No Symptoms ED EXAM, GENERAL - Physical Exam Exam: See Below Exam Limited By: No Limitations General Appearance: Alert, WD/WN, Mild Distress (Patient is moderately uncomfortable due to pain in her left leg.) Respiratory/Chest: No Respiratory Distress, Lungs Clear, Normal Breath Sounds, No Accessory Muscle Use, Chest Non-Tender Cardiovascular: Normal Peripheral Pulses, Regular Rate, Rhythm, No Edema, No Gallop, No JVD, No Murmur, No Rub Extremities: Other (Midline incision to the left anterior knee. Surgical dressing is intact. There is some edema and ecchymosis to the surrounding tissues. Area is tender to palpation.) Neurological: Alert, Oriented, CN II-XII Intact, Normal Cognition, Normal Gait, Normal Reflexes, No Motor/Sensory Deficits Psychiatric: Normal Affect, Normal Mood Skin Exam: Warm, Dry, Normal Color, No Rash Course - Vital Signs Last Recorded V/S: Last Vital Signs Temp 97.8 F 08/30/19 12:00 Pulse 100 08/29/19 21:34 Resp 16 08/30/19 12:00 BP 155/96 H 08/30/19 12:00 Pulse Ox 98 08/30/19 12:00 - Orders/Labs/Meds Orders: Medication Orders Cyclobenzaprine HCl (Flexeril) 5 mg PO BID PRN PRN Reason: muscle spasms Oxycodone/Acetaminophen (Percocet 325-5 Mg) 2 tab PO Q4H PRN PRN Reason: Pain (severe 7-10) Last Admin: 08/30/19 15:34 Dose: 2 tab Admin: 08/30/19 11:34 Dose: 2 tab Admin: 08/30/19 07:34 Dose: 2 tab Admin: 08/30/19 03:25 Dose: 2 tab Admin: 08/29/19 22:59 Dose: 2 tab Sodium Chloride (Saline Flush) 10 ml FLUSH ASDIRECTED PRN PRN Reason: Keep Vein Open Meds: Medications Generic Name Dose Route Start Last Admin Trade Name Freq PRN Reason Stop Dose Admin Cyclobenzaprine HCl 5 mg 08/29/19 23:12 Flexeril PO BID PRN muscle spasms Oxycodone/Acetaminophen 2 tab 08/29/19 22:20 08/30/19 15:34 Percocet 325-5 Mg PO 2 tab Q4H PRN Administration Pain (severe 7-10) Sodium Chloride 10 ml 08/29/19 20:06 Saline Flush FLUSH ASDIRECTED PRN Keep Vein Open Discontinued Medications Generic Name Dose Route Start Last Admin Trade Name Freq PRN Reason Stop Dose Admin Cyclobenzaprine HCl 45 mg 08/29/19 22:20 Flexeril PO BID PRN Muscle Spasm Oxycodone/Acetaminophen 2 tab 08/29/19 18:56 08/29/19 19:03 Percocet 325-5 Mg PO 08/29/19 18:57 2 tab ONETIME ONE Administration - Re-Assessments/Exams Free Text/Narrative Re-Assessment/Exam: I have ordered a dose of Percocet 5/325 mg 2 tabs to be given now. Discussed patient case with orthopedic surgeon, Dr. Coyne. He requested that the patient be admitted as an inpatient for pain and weakness. He requested that bridge orders be written. I will write to continue her Percocet and Flexeril as was ordered on discharge. Departure - Departure Time of Disposition: 19:00 Disposition: Admitted As Inpatient 66 Condition: Fair Clinical Impression: Postoperative pain, Weakness generalized - Discharge Information Sepsis Event Note - Evaluation Sepsis Screening Result: No Definite Risk - Focused Exam Date Exam was Performed: 08/30/19 Time Exam was Performed: 16:54
[2019-08-30] MEDS ORDERED: Sennosides 8.6 MG Tab PO PRN (17:09)
[2019-08-30] MEDS ORDERED: Cyclobenzaprine 10 MG Tab PO PRN (17:09)
[2019-08-30] MEDS ORDERED: Bisacodyl 5 MG Tab PO PRN (17:09)
[2019-08-30] MEDS ORDERED: Magnesium Hydroxide 400 MG/5 ML Susp 30 ML Cup PO PRN (17:09)
[2019-08-30] MEDS ORDERED: Albuterol 6.7 GM Inhaler INH PRN (17:35)
[2019-08-30] MEDS: Hydrochlorothiazide 12.5 MG Cap PO SCH (17:52)
[2019-08-30] MEDS: Losartan 100 MG Tab PO SCH (17:52)
[2019-08-30] MEDS: Rivaroxaban 10 MG Tab PO SCH (17:52)
[2019-08-30] MEDS: Simvastatin 20 MG Tab PO SCH (20:09)
[2019-08-30] MEDS: Gabapentin 600 MG Tab PO SCH (20:09)
[2019-08-30] MEDS: Pramipexole 0.5 MG Tab PO SCH (20:09)
[2019-08-30] MEDS: Montelukast 10 MG Tab PO SCH (20:09)
[2019-08-30] MEDS: Famotidine 20 MG Tab PO SCH (20:09)
--- NOTE | 2019-08-30 21:20 | PCM.SURGPN ---
- General Info Date of Service: 08/30/19 POD#: 2 Functional Status: Reports: Tolerating Diet, Urinating, Incentive Spirometry, Other (The pt was able to ambulate only short distances.) - Patient Data Vitals - Most Recent: Last Vital Signs Temp 98.2 F 08/30/19 20:00 Pulse 103 H 08/30/19 20:53 Resp 16 08/30/19 20:00 BP 145/80 H 08/30/19 20:00 Pulse Ox 95 08/30/19 20:53 Weight - Most Recent: 227 lb 14.4 oz I&O - Last 24 Hours: Intake & Output 08/30/19 08/30/19 08/30/19 06:59 14:59 22:59 Intake Total 300 360 Output Total 600 400 800 Balance -300 -400 -440 Lab Results Last 24 Hrs: Laboratory Results - last 24 hr 08/29/19 08/30/19 Range/Units 19:58 17:45 Manual Slide Review Abnormal smear Sodium 137 (136-145) mEq/L Potassium 3.6 (3.5-5.1) mEq/L Chloride 99 (98-107) mEq/L Carbon Dioxide 29 (21-32) mEq/L Anion Gap 12.6 (5-15) BUN 14 (7-18) mg/dL Creatinine 0.8 (0.55-1.02) mg/dL Est Cr Clr Drug Dosing 49.24 mL/min Estimated GFR (MDRD) > 60 (>60) mL/min BUN/Creatinine Ratio 17.5 (14-18) Glucose 201 H (83-115) mg/dL Calcium 9.4 (8.5-10.1) mg/dL Med Orders - Current: Current Medications Albuterol (Proventil Hfa) 1 - 2 gm INH Q6H PRN PRN Reason: SHORNTESS OF BREATH Bisacodyl (Dulcolax) 5 mg PO DAILY PRN PRN Reason: Constipation Bumetanide (Bumex) 1 mg PO DAILY [facility] Cholecalciferol (Vitamin D3) 5,000 unit PO DAILY [facility] Cyclobenzaprine HCl (Flexeril) 5 mg PO BID PRN PRN Reason: muscle spasms Famotidine (Pepcid) 20 mg PO BID [facility] Last Admin: 08/30/19 20:09 Dose: 20 mg Gabapentin (Neurontin) 600 mg PO BID [facility] Last Admin: 08/30/19 20:09 Dose: 600 mg Hydrochlorothiazide (Hydrochlorothiazide) 12.5 mg PO DAILY [facility] Last Admin: 08/30/19 17:52 Dose: 12.5 mg Levothyroxine Sodium (Levothyroxine) 25 mcg PO DAILY@0600 [facility] Loratadine (Claritin) 10 mg PO DAILY [facility] Losartan Potassium (Cozaar) 100 mg PO DAILY [facility] Last Admin: 08/30/19 17:52 Dose: 100 mg Magnesium Hydroxide (Milk Of Magnesia) 30 ml PO BID PRN PRN Reason: Constipation Montelukast Sodium (Singulair) 10 mg PO BEDTIME [facility] Last Admin: 08/30/19 20:09 Dose: 10 mg Non-Formulary Medication (Tiotropium) 1 puff INH ASDIRECTED [facility] Oxycodone/Acetaminophen (Percocet 325-5 Mg) 2 tab PO Q4H PRN PRN Reason: Pain (severe 7-10) Last Admin: 08/30/19 19:12 Dose: 2 tab Pramipexole Dihydrochloride (Mirapex) 1 mg PO BEDTIME [facility] Last Admin: 08/30/19 20:09 Dose: 1 mg Rivaroxaban (Xarelto) 10 mg PO DAILY [facility] Last Admin: 08/30/19 17:52 Dose: 10 mg Senna (Senna) 8.6 mg PO BID PRN PRN Reason: Constipation Last Admin: 08/30/19 17:55 Dose: 8.6 mg Senna/Docusate Sodium (Senna Plus) 2 tab PO DAILY [facility] Simvastatin (Zocor) 20 mg PO BEDTIME [facility] Last Admin: 08/30/19 20:09 Dose: 20 mg Sodium Chloride (Saline Flush) 10 ml FLUSH ASDIRECTED PRN PRN Reason: Keep Vein Open Discontinued Medications Cyclobenzaprine HCl (Flexeril) 45 mg PO BID PRN PRN Reason: Muscle Spasm Cyclobenzaprine HCl (Flexeril) 5 mg PO BID PRN PRN Reason: Spasms Oxycodone/Acetaminophen (Percocet 325-5 Mg) 2 tab PO ONETIME ONE Stop: 08/29/19 18:57 Last Admin: 08/29/19 19:03 Dose: 2 tab - Exam Wound/Incisions: Dressing Dry and Intact General: Alert, Cooperative, No Acute Distress Lungs: Normal Respiratory Effort Extremities: Other (NVS intact for LLE. Jose Cruz's negative.) Sepsis Event Note - Evaluation Sepsis Screening Result: No Definite Risk - Focused Exam Vital Signs: Vital Signs Temp Pulse Resp BP BP Pulse Ox 08/30/19 20:53 103 H 95 08/30/19 20:00 98.2 F 16 145/80 H 94 L 08/30/19 17:52 138/87 08/30/19 16:00 98.2 F 108 H 18 148/90 H 98 08/30/19 12:00 97.8 F 16 155/96 H 98 Date Exam was Performed: 08/31/19 Time Exam was Performed: 12:06 - Problem List Review Problem List Initiated/Reviewed/Updated: Yes - My Orders Last 24 Hours: Active Orders 24 hr Category Date Time Status Ambulate [RC] DAILY Care 08/29/19 22:18 Active Up to Chair [RC] BID Care 08/29/19 22:18 Active Vital Signs [RC] Q4HR Care 08/29/19 22:18 Active OT Evaluation and Treatment [CONS] Routine Cons 08/30/19 10:05 Active PT Evaluation and Treatment [CONS] Routine Cons 08/30/19 10:05 Active Regular Diet [DIET] Diet 08/30/19 Breakfast Active Acetaminophen/oxyCODONE [Percocet 325-5 MG] Med 08/29/19 22:20 Active 2 tab PO Q4H PRN Albuterol [Proventil HFA] Med 08/30/19 17:35 Active 1 - 2 gm INH Q6H PRN Bumetanide [Bumex] Med 08/31/19 09:00 Active 1 mg PO DAILY Cholecalciferol (Vitamin D3) [Vitamin D3] Med 08/31/19 09:00 Active 5,000 unit PO DAILY Cyclobenzaprine [Flexeril] Med 08/29/19 23:12 Active 5 mg PO BID PRN Docusate Sodium/Sennosides [Senna Plus] Med 08/31/19 09:00 Active 2 tab PO DAILY Famotidine [Pepcid] Med 08/30/19 21:00 Active 20 mg PO BID Gabapentin [Neurontin] Med 08/30/19 21:00 Active 600 mg PO BID Levothyroxine Med 08/31/19 06:00 Active 25 mcg PO DAILY@0600 Loratadine [Claritin] Med 08/31/19 09:00 Active 10 mg PO DAILY Losartan [Cozaar] Med 08/30/19 17:15 Active 100 mg PO DAILY Magnesium Hydroxide [Milk of Magnesia] Med 08/30/19 17:09 Active 30 ml PO BID PRN Montelukast [Singulair] Med 08/30/19 21:00 Active 10 mg PO BEDTIME Pramipexole [Mirapex] Med 08/30/19 21:00 Active 1 mg PO BEDTIME Rivaroxaban [Xarelto] Med 08/30/19 17:15 Active 10 mg PO DAILY Sennosides [Senna] Med 08/30/19 17:09 Active 8.6 mg PO BID PRN Simvastatin [Zocor] Med 08/30/19 21:00 Active 20 mg PO BEDTIME Tiotropium Med 08/30/19 17:15 Pending 1 puff INH ASDIRECTED bisacodyL [Dulcolax] Med 08/30/19 17:09 Active 5 mg PO DAILY PRN hydroCHLOROthiazide Med 08/30/19 17:45 Active 12.5 mg PO DAILY Code Status [Resuscitation Status] Routine Resus Stat 08/29/19 22:16 Ordered Medication Orders Albuterol (Proventil Hfa) 1 - 2 gm INH Q6H PRN PRN Reason: SHORNTESS OF BREATH Bisacodyl (Dulcolax) 5 mg PO DAILY PRN PRN Reason: Constipation Bumetanide (Bumex) 1 mg PO DAILY [facility] Cholecalciferol (Vitamin D3) 5,000 unit PO DAILY [facility] Cyclobenzaprine HCl (Flexeril) 5 mg PO BID PRN PRN Reason: muscle spasms Famotidine (Pepcid) 20 mg PO BID [facility] Last Admin: 08/30/19 20:09 Dose: 20 mg Gabapentin (Neurontin) 600 mg PO BID [facility] Last Admin: 08/30/19 20:09 Dose: 600 mg Hydrochlorothiazide (Hydrochlorothiazide) 12.5 mg PO DAILY [facility] Last Admin: 08/30/19 17:52 Dose: 12.5 mg Levothyroxine Sodium (Levothyroxine) 25 mcg PO DAILY@0600 [facility] Loratadine (Claritin) 10 mg PO DAILY [facility] Losartan Potassium (Cozaar) 100 mg PO DAILY [facility] Last Admin: 08/30/19 17:52 Dose: 100 mg Magnesium Hydroxide (Milk Of Magnesia) 30 ml PO BID PRN PRN Reason: Constipation Montelukast Sodium (Singulair) 10 mg PO BEDTIME [facility] Last Admin: 08/30/19 20:09 Dose: 10 mg Non-Formulary Medication (Tiotropium) 1 puff INH ASDIRECTED [facility] Oxycodone/Acetaminophen (Percocet 325-5 Mg) 2 tab PO Q4H PRN PRN Reason: Pain (severe 7-10) Last Admin: 08/30/19 19:12 Dose: 2 tab Admin: 08/30/19 15:34 Dose: 2 tab Admin: 08/30/19 11:34 Dose: 2 tab Admin: 08/30/19 07:34 Dose: 2 tab Admin: 08/30/19 03:25 Dose: 2 tab Admin: 08/29/19 22:59 Dose: 2 tab Pramipexole Dihydrochloride (Mirapex) 1 mg PO BEDTIME [facility] Last Admin: 08/30/19 20:09 Dose: 1 mg Rivaroxaban (Xarelto) 10 mg PO DAILY [facility] Last Admin: 08/30/19 17:52 Dose: 10 mg Senna (Senna) 8.6 mg PO BID PRN PRN Reason: Constipation Last Admin: 08/30/19 17:55 Dose: 8.6 mg Senna/Docusate Sodium (Senna Plus) 2 tab PO DAILY [facility] Simvastatin (Zocor) 20 mg PO BEDTIME [facility] Last Admin: 08/30/19 20:09 Dose: 20 mg Sodium Chloride (Saline Flush) 10 ml FLUSH ASDIRECTED PRN PRN Reason: Keep Vein Open - Assessment Assessment (Free Text/Narrative):: POD#2 - left TKA - Plan Plan (Free Text/Narrative):: 1. Xarelto 10mg PO daily, frequent mobility, TEDs, SCDs. 2. The pt will remain in Hospital for continued monitoring and therapies. 3. Discharge to home versus senior care. The pt was evaluated by Dr. Doretha low.
[2019-08-31] MEDS: Acetaminophen/oxyCODONE 325-5 MG Tab PO PRN ×5 (03:45→20:33)
[2019-08-31] MEDS: Levothyroxine 25 MCG Tab PO SCH (06:08)
[2019-08-31] MEDS: Gabapentin 600 MG Tab PO SCH ×2 (08:43→20:32)
[2019-08-31] MEDS: Cholecalciferol (Vitamin D3) 5,000 UNIT Tab PO SCH (08:43)
[2019-08-31] MEDS: Bumetanide 1 MG Tab PO SCH ×3 (08:44→08:56)
[2019-08-31] MEDS: Losartan 100 MG Tab PO SCH (08:45)
[2019-08-31] MEDS: Rivaroxaban 10 MG Tab PO SCH (08:45)
[2019-08-31] MEDS: Hydrochlorothiazide 12.5 MG Cap PO SCH (08:46)
[2019-08-31] MEDS: Famotidine 20 MG Tab PO SCH ×2 (08:46→20:33)
[2019-08-31] MEDS: Loratadine 10 MG Tab PO SCH (08:46)
[2019-08-31] MEDS ORDERED: ALBUTEROL INH PRN (12:02)
--- NOTE | 2019-08-31 12:22 | PCM.SURGPN ---
- General Info Date of Service: 08/31/19 POD#: 3 Functional Status: Reports: Other (Pt states her pain is better controlled. She has been mobile in her room.) - Patient Data Vitals - Most Recent: Last Vital Signs Temp 98.1 F 08/31/19 08:34 Pulse 103 H 08/30/19 20:53 Resp 16 08/31/19 08:34 BP 130/78 08/31/19 08:45 Pulse Ox 96 08/31/19 08:34 Weight - Most Recent: 227 lb 14.4 oz I&O - Last 24 Hours: Intake & Output 08/30/19 08/31/19 08/31/19 22:59 06:59 14:59 Intake Total 360 540 120 Output Total 1200 100 Balance -840 440 120 Lab Results Last 24 Hrs: Laboratory Results - last 24 hr 08/30/19 Range/Units 17:45 Sodium 137 (136-145) mEq/L Potassium 3.6 (3.5-5.1) mEq/L Chloride 99 (98-107) mEq/L Carbon Dioxide 29 (21-32) mEq/L Anion Gap 12.6 (5-15) BUN 14 (7-18) mg/dL Creatinine 0.8 (0.55-1.02) mg/dL Est Cr Clr Drug Dosing 49.24 mL/min Estimated GFR (MDRD) > 60 (>60) mL/min BUN/Creatinine Ratio 17.5 (14-18) Glucose 201 H (83-115) mg/dL Calcium 9.4 (8.5-10.1) mg/dL Med Orders - Current: Current Medications Albuterol (Proventil Hfa) 1 - 2 gm INH Q6H PRN PRN Reason: SHORNTESS OF BREATH Bisacodyl (Dulcolax) 5 mg PO DAILY PRN PRN Reason: Constipation Bumetanide (Bumex) 1 mg PO DAILY [facility] Last Admin: 08/31/19 08:56 Dose: 1 mg Cholecalciferol (Vitamin D3) 5,000 unit PO DAILY [facility] Last Admin: 08/31/19 08:43 Dose: 5,000 unit Cyclobenzaprine HCl (Flexeril) 5 mg PO BID PRN PRN Reason: muscle spasms Famotidine (Pepcid) 20 mg PO BID [facility] Last Admin: 08/31/19 08:46 Dose: 20 mg Gabapentin (Neurontin) 600 mg PO BID [facility] Last Admin: 08/31/19 08:43 Dose: Not Given Hydrochlorothiazide (Hydrochlorothiazide) 12.5 mg PO DAILY [facility] Last Admin: 08/31/19 08:46 Dose: 12.5 mg Levothyroxine Sodium (Levothyroxine) 25 mcg PO DAILY@0600 [facility] Last Admin: 08/31/19 06:08 Dose: 25 mcg Loratadine (Claritin) 10 mg PO DAILY [facility] Last Admin: 08/31/19 08:46 Dose: 10 mg Losartan Potassium (Cozaar) 100 mg PO DAILY [facility] Last Admin: 08/31/19 08:45 Dose: 100 mg Magnesium Hydroxide (Milk Of Magnesia) 30 ml PO BID PRN PRN Reason: Constipation Montelukast Sodium (Singulair) 10 mg PO BEDTIME [facility] Last Admin: 08/30/19 20:09 Dose: 10 mg Spiriva Respimat 1. 25 Mcg/Actuation Ptom 2 puff INH 1300 [facility] Oxycodone/Acetaminophen (Percocet 325-5 Mg) 2 tab PO Q4H PRN PRN Reason: Pain (severe 7-10) Last Admin: 08/31/19 12:03 Dose: 2 tab Pramipexole Dihydrochloride (Mirapex) 1 mg PO BEDTIME [facility] Last Admin: 08/30/19 20:09 Dose: 1 mg Rivaroxaban (Xarelto) 10 mg PO DAILY [facility] Last Admin: 08/31/19 08:45 Dose: 10 mg Senna (Senna) 8.6 mg PO BID PRN PRN Reason: Constipation Last Admin: 08/30/19 17:55 Dose: 8.6 mg Senna/Docusate Sodium (Senna Plus) 2 tab PO DAILY [facility] Last Admin: 08/31/19 08:47 Dose: 2 tab Simvastatin (Zocor) 20 mg PO BEDTIME [facility] Last Admin: 08/30/19 20:09 Dose: 20 mg Sodium Chloride (Saline Flush) 10 ml FLUSH ASDIRECTED PRN PRN Reason: Keep Vein Open Discontinued Medications Albuterol (Proventil Hfa) 1 - 2 gm INH Q6H PRN PRN Reason: SHORNTESS OF BREATH Cyclobenzaprine HCl (Flexeril) 45 mg PO BID PRN PRN Reason: Muscle Spasm Cyclobenzaprine HCl (Flexeril) 5 mg PO BID PRN PRN Reason: Spasms Oxycodone/Acetaminophen (Percocet 325-5 Mg) 2 tab PO ONETIME ONE Stop: 08/29/19 18:57 Last Admin: 08/29/19 19:03 Dose: 2 tab - Exam Wound/Incisions: Dressing Dry and Intact General: Alert, Cooperative, No Acute Distress Lungs: Normal Respiratory Effort Extremities: Other (NVS intact for BLE. Jose Cruz's negative.) Sepsis Event Note - Evaluation Sepsis Screening Result: No Definite Risk - Focused Exam Vital Signs: Vital Signs Temp Resp BP BP Pulse Ox Pulse Ox 08/31/19 08:45 130/78 08/31/19 08:34 98.1 F 16 130/78 96 08/31/19 06:12 95 08/31/19 03:45 97.6 F 16 112/70 95 Date Exam was Performed: 08/31/19 Time Exam was Performed: 12:15 - Problem List Review Problem List Initiated/Reviewed/Updated: Yes - My Orders Last 24 Hours: Active Orders 24 hr Category Date Time Status Albuterol [Proventil HFA] Med 08/31/19 12:02 Active 1 - 2 gm INH Q6H PRN Bumetanide [Bumex] Med 08/31/19 09:00 Active 1 mg PO DAILY Cholecalciferol (Vitamin D3) [Vitamin D3] Med 08/31/19 09:00 Active 5,000 unit PO DAILY Docusate Sodium/Sennosides [Senna Plus] Med 08/31/19 09:00 Active 2 tab PO DAILY Famotidine [Pepcid] Med 08/30/19 21:00 Active 20 mg PO BID Gabapentin [Neurontin] Med 08/30/19 21:00 Active 600 mg PO BID Levothyroxine Med 08/31/19 06:00 Active 25 mcg PO DAILY@0600 Loratadine [Claritin] Med 08/31/19 09:00 Active 10 mg PO DAILY Losartan [Cozaar] Med 08/30/19 17:15 Active 100 mg PO DAILY Magnesium Hydroxide [Milk of Magnesia] Med 08/30/19 17:09 Active 30 ml PO BID PRN Montelukast [Singulair] Med 08/30/19 21:00 Active 10 mg PO BEDTIME Pramipexole [Mirapex] Med 08/30/19 21:00 Active 1 mg PO BEDTIME Rivaroxaban [Xarelto] Med 08/30/19 17:15 Active 10 mg PO DAILY Sennosides [Senna] Med 08/30/19 17:09 Active 8.6 mg PO BID PRN Simvastatin [Zocor] Med 08/30/19 21:00 Active 20 mg PO BEDTIME Tiotropium Med 08/31/19 13:00 Active 2 puff INH 1300 bisacodyL [Dulcolax] Med 08/30/19 17:09 Active 5 mg PO DAILY PRN hydroCHLOROthiazide Med 08/30/19 17:45 Active 12.5 mg PO DAILY Medication Orders Albuterol (Proventil Hfa) 1 - 2 gm INH Q6H PRN PRN Reason: SHORNTESS OF BREATH Bisacodyl (Dulcolax) 5 mg PO DAILY PRN PRN Reason: Constipation Bumetanide (Bumex) 1 mg PO DAILY [facility] Last Admin: 08/31/19 08:56 Dose: 1 mg Admin: 08/31/19 08:50 Dose: Not Given Cholecalciferol (Vitamin D3) 5,000 unit PO DAILY [facility] Last Admin: 08/31/19 08:43 Dose: 5,000 unit Cyclobenzaprine HCl (Flexeril) 5 mg PO BID PRN PRN Reason: muscle spasms Famotidine (Pepcid) 20 mg PO BID [facility] Last Admin: 08/31/19 08:46 Dose: 20 mg Admin: 08/30/19 20:09 Dose: 20 mg Gabapentin (Neurontin) 600 mg PO BID [facility] Last Admin: 08/31/19 08:43 Dose: Not Given Admin: 08/30/19 20:09 Dose: 600 mg Hydrochlorothiazide (Hydrochlorothiazide) 12.5 mg PO DAILY [facility] Last Admin: 08/31/19 08:46 Dose: 12.5 mg Admin: 08/30/19 17:52 Dose: 12.5 mg Levothyroxine Sodium (Levothyroxine) 25 mcg PO DAILY@0600 [facility] Last Admin: 08/31/19 06:08 Dose: 25 mcg Loratadine (Claritin) 10 mg PO DAILY [facility] Last Admin: 08/31/19 08:46 Dose: 10 mg Losartan Potassium (Cozaar) 100 mg PO DAILY [facility] Last Admin: 08/31/19 08:45 Dose: 100 mg Admin: 08/30/19 17:52 Dose: 100 mg Magnesium Hydroxide (Milk Of Magnesia) 30 ml PO BID PRN PRN Reason: Constipation Montelukast Sodium (Singulair) 10 mg PO BEDTIME [facility] Last Admin: 08/30/19 20:09 Dose: 10 mg Spiriva Respimat 1. 25 Mcg/Actuation Ptom 2 puff INH 1300 [facility] Oxycodone/Acetaminophen (Percocet 325-5 Mg) 2 tab PO Q4H PRN PRN Reason: Pain (severe 7-10) Last Admin: 08/31/19 12:03 Dose: 2 tab Admin: 08/31/19 08:44 Dose: 2 tab Admin: 08/31/19 03:45 Dose: 2 tab Admin: 08/30/19 23:05 Dose: 2 tab Admin: 08/30/19 19:12 Dose: 2 tab Admin: 08/30/19 15:34 Dose: 2 tab Admin: 08/30/19 11:34 Dose: 2 tab Admin: 08/30/19 07:34 Dose: 2 tab Admin: 08/30/19 03:25 Dose: 2 tab Admin: 08/29/19 22:59 Dose: 2 tab Pramipexole Dihydrochloride (Mirapex) 1 mg PO BEDTIME [facility] Last Admin: 08/30/19 20:09 Dose: 1 mg Rivaroxaban (Xarelto) 10 mg PO DAILY [facility] Last Admin: 08/31/19 08:45 Dose: 10 mg Admin: 08/30/19 17:52 Dose: 10 mg Senna (Senna) 8.6 mg PO BID PRN PRN Reason: Constipation Last Admin: 08/30/19 17:55 Dose: 8.6 mg Senna/Docusate Sodium (Senna Plus) 2 tab PO DAILY [facility] Last Admin: 08/31/19 08:47 Dose: 2 tab Simvastatin (Zocor) 20 mg PO BEDTIME [facility] Last Admin: 08/30/19 20:09 Dose: 20 mg Sodium Chloride (Saline Flush) 10 ml FLUSH ASDIRECTED PRN PRN Reason: Keep Vein Open - Assessment Assessment (Free Text/Narrative):: POD#3 - s/p left TKA - Plan Plan (Free Text/Narrative):: 1. The pt is making improvements. Her pain is better controlled and mobility improved. 2. Suspect d/c to home vs. shelter. 3. Xarelto 10mg PO daily, frequent mobility, TEDs, SCDs. The pt was evaluated by Dr. Coyne today.
[2019-08-31] MEDS ORDERED: SPIRIVA RESPIMAT INH SCH (13:00)
[2019-08-31] MEDS: Montelukast 10 MG Tab PO SCH (20:32)
[2019-08-31] MEDS: Pramipexole 0.5 MG Tab PO SCH (20:32)
[2019-08-31] MEDS: Simvastatin 20 MG Tab PO SCH (20:33)
[2019-09-01] MEDS: Acetaminophen/oxyCODONE 325-5 MG Tab PO PRN ×2 (00:34→08:17)
[2019-09-01] MEDS: Levothyroxine 25 MCG Tab PO SCH (06:22)
[2019-09-01] MEDS: Rivaroxaban 10 MG Tab PO SCH (08:17)
[2019-09-01] MEDS: Gabapentin 600 MG Tab PO SCH (08:17)
[2019-09-01] MEDS: Bumetanide 1 MG Tab PO SCH (08:17)
[2019-09-01] MEDS: Famotidine 20 MG Tab PO SCH (08:17)
[2019-09-01] MEDS: Cholecalciferol (Vitamin D3) 5,000 UNIT Tab PO SCH (08:18)
[2019-09-01] MEDS: Hydrochlorothiazide 12.5 MG Cap PO SCH (08:18)
[2019-09-01] MEDS: Loratadine 10 MG Tab PO SCH (08:18)
[2019-09-01] MEDS: Losartan 100 MG Tab PO SCH (08:20)
--- NOTE | 2019-09-01 08:54 | PCM.SURGPN ---
- General Info Date of Service: 09/01/19 POD#: 4 Functional Status: Reports: Pain Controlled, Tolerating Diet, Ambulating, Urinating, Incentive Spirometry, Other (The pt states that today she feels prepared to discharge to home with her family.) - Review of Systems General: Denies: Fever, Chills Pulmonary: Denies: Shortness of Breath Cardiovascular: Denies: Chest Pain - Patient Data Vitals - Most Recent: Last Vital Signs Temp 97.7 F 09/01/19 08:27 Pulse 94 09/01/19 08:27 Resp 19 09/01/19 08:27 BP 153/70 H 09/01/19 08:27 Pulse Ox 93 L 09/01/19 08:27 Weight - Most Recent: 229 lb 3.2 oz I&O - Last 24 Hours: Intake & Output 08/31/19 09/01/19 09/01/19 22:59 06:59 14:59 Intake Total 600 Balance 600 Med Orders - Current: Current Medications Albuterol (Proventil Hfa) 1 - 2 gm INH Q6H PRN PRN Reason: SHORNTESS OF BREATH Bisacodyl (Dulcolax) 5 mg PO DAILY PRN PRN Reason: Constipation Bumetanide (Bumex) 1 mg PO DAILY [facility] Last Admin: 09/01/19 08:17 Dose: Not Given Cholecalciferol (Vitamin D3) 5,000 unit PO DAILY [facility] Last Admin: 09/01/19 08:18 Dose: 5,000 unit Cyclobenzaprine HCl (Flexeril) 5 mg PO BID PRN PRN Reason: muscle spasms Famotidine (Pepcid) 20 mg PO BID [facility] Last Admin: 09/01/19 08:17 Dose: 20 mg Gabapentin (Neurontin) 600 mg PO BID [facility] Last Admin: 09/01/19 08:17 Dose: 600 mg Hydrochlorothiazide (Hydrochlorothiazide) 12.5 mg PO DAILY [facility] Last Admin: 09/01/19 08:18 Dose: 12.5 mg Levothyroxine Sodium (Levothyroxine) 25 mcg PO DAILY@0600 [facility] Last Admin: 09/01/19 06:22 Dose: 25 mcg Loratadine (Claritin) 10 mg PO DAILY [facility] Last Admin: 09/01/19 08:18 Dose: 10 mg Losartan Potassium (Cozaar) 100 mg PO DAILY [facility] Last Admin: 09/01/19 08:20 Dose: 100 mg Magnesium Hydroxide (Milk Of Magnesia) 30 ml PO BID PRN PRN Reason: Constipation Montelukast Sodium (Singulair) 10 mg PO BEDTIME [facility] Last Admin: 08/31/19 20:32 Dose: 10 mg Spiriva Respimat 1. 25 Mcg/Actuation Ptom 2 puff INH 1300 [facility] Last Admin: 08/31/19 13:08 Dose: Not Given Oxycodone/Acetaminophen (Percocet 325-5 Mg) 2 tab PO Q4H PRN PRN Reason: Pain (severe 7-10) Last Admin: 09/01/19 08:17 Dose: 2 tab Pramipexole Dihydrochloride (Mirapex) 1 mg PO BEDTIME [facility] Last Admin: 08/31/19 20:32 Dose: 1 mg Rivaroxaban (Xarelto) 10 mg PO DAILY [facility] Last Admin: 09/01/19 08:17 Dose: 10 mg Senna (Senna) 8.6 mg PO BID PRN PRN Reason: Constipation Last Admin: 08/30/19 17:55 Dose: 8.6 mg Senna/Docusate Sodium (Senna Plus) 2 tab PO DAILY [facility] Last Admin: 09/01/19 08:20 Dose: 2 tab Simvastatin (Zocor) 20 mg PO BEDTIME [facility] Last Admin: 08/31/19 20:33 Dose: 20 mg Sodium Chloride (Saline Flush) 10 ml FLUSH ASDIRECTED PRN PRN Reason: Keep Vein Open Discontinued Medications Albuterol (Proventil Hfa) 1 - 2 gm INH Q6H PRN PRN Reason: SHORNTESS OF BREATH Cyclobenzaprine HCl (Flexeril) 45 mg PO BID PRN PRN Reason: Muscle Spasm Cyclobenzaprine HCl (Flexeril) 5 mg PO BID PRN PRN Reason: Spasms Oxycodone/Acetaminophen (Percocet 325-5 Mg) 2 tab PO ONETIME ONE Stop: 08/29/19 18:57 Last Admin: 08/29/19 19:03 Dose: 2 tab - Exam Wound/Incisions: Dressing Dry and Intact General: Alert, Cooperative, No Acute Distress Lungs: Normal Respiratory Effort Extremities: Other (NVS intact for BLE. Jose Cruz's negative.) Sepsis Event Note - Evaluation Sepsis Screening Result: No Definite Risk - Focused Exam Vital Signs: Vital Signs Temp Pulse Resp BP BP Pulse Ox 09/01/19 08:27 97.7 F 94 19 153/70 H 93 L 09/01/19 08:20 153/70 H 09/01/19 04:00 97.5 F 90 16 164/89 H 91 L 08/31/19 21:15 98.5 F 88 18 148/75 H 97 Date Exam was Performed: 09/01/19 Time Exam was Performed: 08:52 - Problem List Review Problem List Initiated/Reviewed/Updated: Yes - My Orders Last 24 Hours: Active Orders 24 hr Category Date Time Status Ready for Discharge [RC] PER UNIT ROUTINE Care 09/01/19 08:35 Active Albuterol [Proventil HFA] Med 08/31/19 12:02 Active 1 - 2 gm INH Q6H PRN Bumetanide [Bumex] Med 08/31/19 09:00 Active 1 mg PO DAILY Cholecalciferol (Vitamin D3) [Vitamin D3] Med 08/31/19 09:00 Active 5,000 unit PO DAILY Docusate Sodium/Sennosides [Senna Plus] Med 08/31/19 09:00 Active 2 tab PO DAILY Loratadine [Claritin] Med 08/31/19 09:00 Active 10 mg PO DAILY Tiotropium Med 08/31/19 13:00 Active 2 puff INH 1300 Medication Orders Albuterol (Proventil Hfa) 1 - 2 gm INH Q6H PRN PRN Reason: SHORNTESS OF BREATH Bisacodyl (Dulcolax) 5 mg PO DAILY PRN PRN Reason: Constipation Bumetanide (Bumex) 1 mg PO DAILY [facility] Last Admin: 09/01/19 08:17 Dose: Not Given Admin: 08/31/19 08:56 Dose: 1 mg Admin: 08/31/19 08:50 Dose: Not Given Cholecalciferol (Vitamin D3) 5,000 unit PO DAILY [facility] Last Admin: 09/01/19 08:18 Dose: 5,000 unit Admin: 08/31/19 08:43 Dose: 5,000 unit Cyclobenzaprine HCl (Flexeril) 5 mg PO BID PRN PRN Reason: muscle spasms Famotidine (Pepcid) 20 mg PO BID [facility] Last Admin: 09/01/19 08:17 Dose: 20 mg Admin: 08/31/19 20:33 Dose: 20 mg Admin: 08/31/19 08:46 Dose: 20 mg Admin: 08/30/19 20:09 Dose: 20 mg Gabapentin (Neurontin) 600 mg PO BID [facility] Last Admin: 09/01/19 08:17 Dose: 600 mg Admin: 08/31/19 20:32 Dose: 600 mg Admin: 08/31/19 08:43 Dose: Not Given Admin: 08/30/19 20:09 Dose: 600 mg Hydrochlorothiazide (Hydrochlorothiazide) 12.5 mg PO DAILY [facility] Last Admin: 09/01/19 08:18 Dose: 12.5 mg Admin: 08/31/19 08:46 Dose: 12.5 mg Admin: 08/30/19 17:52 Dose: 12.5 mg Levothyroxine Sodium (Levothyroxine) 25 mcg PO DAILY@0600 [facility] Last Admin: 09/01/19 06:22 Dose: 25 mcg Admin: 08/31/19 06:08 Dose: 25 mcg Loratadine (Claritin) 10 mg PO DAILY [facility] Last Admin: 09/01/19 08:18 Dose: 10 mg Admin: 08/31/19 08:46 Dose: 10 mg Losartan Potassium (Cozaar) 100 mg PO DAILY [facility] Last Admin: 09/01/19 08:20 Dose: 100 mg Admin: 08/31/19 08:45 Dose: 100 mg Admin: 08/30/19 17:52 Dose: 100 mg Magnesium Hydroxide (Milk Of Magnesia) 30 ml PO BID PRN PRN Reason: Constipation Montelukast Sodium (Singulair) 10 mg PO BEDTIME [facility] Last Admin: 08/31/19 20:32 Dose: 10 mg Admin: 08/30/19 20:09 Dose: 10 mg Spiriva Respimat 1. 25 Mcg/Actuation Ptom 2 puff INH 1300 [facility] Last Admin: 08/31/19 13:08 Dose: Oxycodone/Acetaminophen (Percocet 325-5 Mg) 2 tab PO Q4H PRN PRN Reason: Pain (severe 7-10) Last Admin: 09/01/19 08:17 Dose: 2 tab Admin: 09/01/19 00:34 Dose: 2 tab Admin: 08/31/19 20:33 Dose: 2 tab Admin: 08/31/19 16:08 Dose: 2 tab Admin: 08/31/19 12:03 Dose: 2 tab Admin: 08/31/19 08:44 Dose: 2 tab Admin: 08/31/19 03:45 Dose: 2 tab Admin: 08/30/19 23:05 Dose: 2 tab Admin: 08/30/19 19:12 Dose: 2 tab Admin: 08/30/19 15:34 Dose: 2 tab Admin: 08/30/19 11:34 Dose: 2 tab Admin: 08/30/19 07:34 Dose: 2 tab Admin: 08/30/19 03:25 Dose: 2 tab Admin: 08/29/19 22:59 Dose: 2 tab Pramipexole Dihydrochloride (Mirapex) 1 mg PO BEDTIME [facility] Last Admin: 08/31/19 20:32 Dose: 1 mg Admin: 08/30/19 20:09 Dose: 1 mg Rivaroxaban (Xarelto) 10 mg PO DAILY [facility] Last Admin: 09/01/19 08:17 Dose: 10 mg Admin: 08/31/19 08:45 Dose: 10 mg Admin: 08/30/19 17:52 Dose: 10 mg Senna (Senna) 8.6 mg PO BID PRN PRN Reason: Constipation Last Admin: 08/30/19 17:55 Dose: 8.6 mg Senna/Docusate Sodium (Senna Plus) 2 tab PO DAILY [facility] Last Admin: 09/01/19 08:20 Dose: 2 tab Admin: 08/31/19 08:47 Dose: 2 tab Simvastatin (Zocor) 20 mg PO BEDTIME [facility] Last Admin: 08/31/19 20:33 Dose: 20 mg Admin: 08/30/19 20:09 Dose: 20 mg Sodium Chloride (Saline Flush) 10 ml FLUSH ASDIRECTED PRN PRN Reason: Keep Vein Open - Assessment Assessment (Free Text/Narrative):: POD#4 - left TKA - Plan Plan (Free Text/Narrative):: 1. Discharge to home today. The pt states she feels prepared to d/c to home. 2. Xarelto 10mg PO daily, frequent mobility, TEDs. 3. The pt was prescribed Percocet, Flexeril and Xarelto on 08-29-2019 and should still have those at home. The pt's case was discussed with Dr. Coyne.
--- NOTE | 2019-09-01 14:13 | PCM.DCSUM1 ---
Discharge Summary - Hospital Course Brief History: Angela is a 79 yo female who underwent left TKA with Dr. Coyne on 08-28-2019. The pt was discharged from Hospital on 08-29-2019. While home, the pt noted increased fatigue, pain and difficulty with mobility. She was evaluated by the ED and re-admitted to Hospital on 08-29-2019. The pt's pain was controlled during the Hospital stay. She used Xarelto for VTE prophylaxis. She participated in PT and OT. The pt was excepted by the [facility] in [place], [place], however, on POD#4, the pt was deemed appropriate to discharge to home with family. The pt will f/u with PCP and orthopedics and will attend outpatient therapy. Diagnosis: Stroke: No - Discharge Data Discharge Date: 09/01/19 Discharge Disposition: Home, Self-Care 01 Condition: Good - Referral to Home Health Primary Care Physician: Micky Coyne MD - Patient Summary/Data Consults: Consultations 08/30/19 10:05 OT Evaluation and Treatment [CONS] Routine PT Evaluation and Treatment [CONS] Routine - Patient Instructions Diet: Usual Diet as Tolerated Activity: Apply Ice, As Tolerated, Elevate Extremity, Full Weight Bearing Driving: Do Not Drive Showering/Bathing: May Shower Wound/Incision Care: Keep Operative Site/Wound Site Clean and Dry, Do NOT Change Dressing Notify Provider of: Fever, Increased Pain, Swelling and Redness, Drainage, Nausea and/or Vomiting Other/Special Instructions: Please get up and moving around EVERY HOUR while awake. This helps to prevent blood clots. Please use your walker and have help with mobility as needed. Take a short walk in your home every hour while awake. Please take the Xarelto blood thinner medication daily as directed. At home, please complete the exercises that you learned during the Hospital stay. Schedule for physical therapy. Use the pain medication as needed. The medication may cause drowsiness and constipation. Contact your primary care provider for instructions if you are constipated. You may use a stool softener like docusate sodium or Colace 100mg twice daily and/or a laxative like Miralax daily for constipation. Increase your water and fiber intake while you are using the pain medication. Discontinue use of the pain medication as soon as able. Please do not use other medications that may cause drowsiness (other pain medications, anxiety pills, cold medications, sleeping pills, etc) while using the prescription pain medication. Do not use alcohol while using the pain medication. You may use acetaminophen or Tylenol for pain management, however, please ensure you are not using over 4000 mg or 4 grams of acetaminophen per day from all sources. Your pain medication has 325mg of acetaminophen per tablet. At this time, please do not use ibuprofen (Motrin, Advil) or naproxen (Aleve) for pain management as you are using the Xarelto. When the Xarelto course is completed in 4 to 6 weeks, you could use ibuprofen or naproxen for pain management (if this is allowed by your primary care provider). Wear the ELSY hose during the day and you may remove these at night. Elevate the limb to decrease swelling. Place ice to the area often. Place a towel between your skin and the blue pad. Use the incentive spirometer often. Take deep breaths throughout the day. Please keep the dressing in place until follow-up. Notify the Clinic if the dressing becomes saturated. Increase your protein intake while you are healing. Call the Clinic with questions or concerns - [phone]. - Discharge Plan *PRESCRIPTION DRUG MONITORING PROGRAM REVIEWED*: No *COPY OF PRESCRIPTION DRUG MONITORING REPORT IN PATIENT BLANCA: No Home Medications: Home Meds Denosumab [Prolia] 60 mg SUBCUT ASDIRECTED 04/02/17 [History] Albuterol [Ventolin HFA] 1 - 2 puff INH Q6H PRN 12/24/18 [History] Bumetanide 1 mg PO DAILY 12/24/18 [History] Cetirizine HCl [Zyrtec] 10 mg PO DAILY 12/24/18 [History] Gabapentin [Neurontin] 600 mg PO BID 12/24/18 [History] Montelukast [Singulair] 10 mg PO BEDTIME 12/24/18 [History] Pramipexole Di-HCl [Mirapex] 1 mg PO BEDTIME 12/24/18 [History] Sennosides/Docusate Sodium [Senna-Docusate Sodium Tablet] 2 tab PO DAILY [History] atorvaSTATin [Lipitor] 20 mg PO DAILY 12/24/18 [History] Cholecalciferol (Vitamin D3) [Vitamin D3] 5,000 unit PO DAILY 08/25/19 [History] Levothyroxine 25 mcg PO DAILY 08/25/19 [History] Losartan Potassium 100 mg PO DAILY 08/25/19 [History] hydroCHLOROthiazide [Hydrochlorothiazide] 12.5 mg PO DAILY 08/25/19 [History] Acetaminophen/oxyCODONE [Percocet 325-5 MG] 1 - 2 tab PO Q4H PRN #60 tablet 04/09 [Rx] Cyclobenzaprine [Flexeril] 5 mg PO BID PRN #20 tablet 08/29/19 [Rx] Famotidine [Pepcid] 20 mg PO Q12H tablet 08/29/19 [Rx] Magnesium Hydroxide [Milk of Magnesia] 30 ml PO BID PRN cup 08/29/19 [Rx] Rivaroxaban [Xarelto] 10 mg PO DAILY #40 tablet 08/29/19 [Rx] Sennosides [Senna] 8.6 mg PO BID PRN tablet 08/29/19 [Rx] bisacodyL [Dulcolax] 5 mg PO DAILY PRN tablet 08/29/19 [Rx] Tiotropium [place] [Spiriva Respimat] 2.5 mcg INH DAILY 08/31/19 [History] Acetaminophen/oxyCODONE [Percocet 325-5 MG] 2 tab PO Q4H PRN tablet 09/01/19 [ Rx] Cyclobenzaprine [Flexeril] 5 mg PO BID PRN tablet 09/01/19 [Rx] Patient Handouts: Outpatient Surgery, Adult, Care After, Surgical Site Infections FAQs - [place], Heart Failure Forms: ED Department Discharge Referrals: Micky Coyne MD [Primary Care Provider] - Arsen Patel MD [Physician] - - Discharge Summary/Plan Comment DC Time >30 min.: No - Patient Data Vitals - Most Recent: Last Vital Signs Temp 97.7 F 09/01/19 08:27 Pulse 94 09/01/19 08:27 Resp 19 09/01/19 08:27 BP 153/70 H 09/01/19 08:27 Pulse Ox 93 L 09/01/19 08:27 Weight - Most Recent: 229 lb 3.2 oz I&O - Last 24 hours: Intake & Output 08/31/19 09/01/19 09/01/19 22:59 06:59 14:59 Intake Total 600 Balance 600 Med Orders - Current: Current Medications Discontinued Medications Albuterol (Proventil Hfa) 1 - 2 gm INH Q6H PRN PRN Reason: SHORNTESS OF BREATH Albuterol (Proventil Hfa) 1 - 2 gm INH Q6H PRN PRN Reason: SHORNTESS OF BREATH Bisacodyl (Dulcolax) 5 mg PO DAILY PRN PRN Reason: Constipation Bumetanide (Bumex) 1 mg PO DAILY [facility] Last Admin: 09/01/19 08:17 Dose: Not Given Cholecalciferol (Vitamin D3) 5,000 unit PO DAILY [facility] Last Admin: 09/01/19 08:18 Dose: 5,000 unit Cyclobenzaprine HCl (Flexeril) 45 mg PO BID PRN PRN Reason: Muscle Spasm Cyclobenzaprine HCl (Flexeril) 5 mg PO BID PRN PRN Reason: muscle spasms Cyclobenzaprine HCl (Flexeril) 5 mg PO BID PRN PRN Reason: Spasms Famotidine (Pepcid) 20 mg PO BID [facility] Last Admin: 09/01/19 08:17 Dose: 20 mg Gabapentin (Neurontin) 600 mg PO BID [facility] Last Admin: 09/01/19 08:17 Dose: 600 mg Hydrochlorothiazide (Hydrochlorothiazide) 12.5 mg PO DAILY [facility] Last Admin: 09/01/19 08:18 Dose: 12.5 mg Levothyroxine Sodium (Levothyroxine) 25 mcg PO DAILY@0600 [facility] Last Admin: 09/01/19 06:22 Dose: 25 mcg Loratadine (Claritin) 10 mg PO DAILY [facility] Last Admin: 09/01/19 08:18 Dose: 10 mg Losartan Potassium (Cozaar) 100 mg PO DAILY [facility] Last Admin: 09/01/19 08:20 Dose: 100 mg Magnesium Hydroxide (Milk Of Magnesia) 30 ml PO BID PRN PRN Reason: Constipation Montelukast Sodium (Singulair) 10 mg PO BEDTIME [facility] Last Admin: 08/31/19 20:32 Dose: 10 mg Spiriva Respimat 1. 25 Mcg/Actuation Ptom 2 puff INH 1300 [facility] Last Admin: 08/31/19 13:08 Dose: Not Given Oxycodone/Acetaminophen (Percocet 325-5 Mg) 2 tab PO ONETIME ONE Stop: 08/29/19 18:57 Last Admin: 08/29/19 19:03 Dose: 2 tab Oxycodone/Acetaminophen (Percocet 325-5 Mg) 2 tab PO Q4H PRN PRN Reason: Pain (severe 7-10) Last Admin: 09/01/19 08:17 Dose: 2 tab Pramipexole Dihydrochloride (Mirapex) 1 mg PO BEDTIME [facility] Last Admin: 08/31/19 20:32 Dose: 1 mg Rivaroxaban (Xarelto) 10 mg PO DAILY [facility] Last Admin: 09/01/19 08:17 Dose: 10 mg Senna (Senna) 8.6 mg PO BID PRN PRN Reason: Constipation Last Admin: 08/30/19 17:55 Dose: 8.6 mg Senna/Docusate Sodium (Senna Plus) 2 tab PO DAILY [facility] Last Admin: 09/01/19 08:20 Dose: 2 tab Simvastatin (Zocor) 20 mg PO BEDTIME [facility] Last Admin: 08/31/19 20:33 Dose: 20 mg Sodium Chloride (Saline Flush) 10 ml FLUSH ASDIRECTED PRN PRN Reason: Keep Vein Open
== END 2019-09-01 11:56 | disposition home or self-care (01) | DRG 948 ==
LOC: JD.ED 18:06 → JD.ICU 19:13
PROVIDERS: ADMIT Orthopaedic Surgery; ATTEND Orthopaedic Surgery
DX: G89.18 Other acute postprocedural pain (principal); R53.1 Weakness; Z96.652 Presence of left artificial knee joint; Z88.1 Allergy status to other antibiotic agents; Z88.5 Allergy status to narcotic agent; Z88.2 Allergy status to sulfonamides; Z88.8 Allergy status to other drugs, medicaments and biological substances; H54.7 Unspecified visual loss; M54.9 Dorsalgia, unspecified; E78.00 Pure hypercholesterolemia, unspecified; I11.0 Hypertensive heart disease with heart failure; I50.9 Heart failure, unspecified; J45.909 Unspecified asthma, uncomplicated; J44.9 Chronic obstructive pulmonary disease, unspecified; M19.90 Unspecified osteoarthritis, unspecified site; G89.29 Other chronic pain; M81.0 Age-related osteoporosis without current pathological fracture; F32.9 Major depressive disorder, single episode, unspecified; G25.81 Restless legs syndrome; Z79.51 Long term (current) use of inhaled steroids; E66.9 Obesity, unspecified; Z90.710 Acquired absence of both cervix and uterus; Z87.891 Personal history of nicotine dependence; Z79.01 Long term (current) use of anticoagulants; Z68.39 Body mass index [BMI] 39.0-39.9, adult; Z79.890 Hormone replacement therapy; Z79.899 Other long term (current) drug therapy
CPT/HCPCS: 99285; A9270; 36415; 80048; 85025; 97110-GP; 97116-GP; 97140-GP; 97162-GP; 97165-GO; 97530-GP; 97535-GO; 99284

== ENCOUNTER 2021-06-03 09:24 | Emergency (ER) | payer MEDICARE, OTHER ==
--- NOTE | 2021-06-03 11:09 | EDM.PDOC ---
ED HPI GENERAL MEDICAL PROBLEM - General Chief Complaint: Upper Extremity Injury/Pain Stated Complaint: ARM INJURY FROM FALL Time Seen by Provider: 06/03/21 10:18 Source of Information: Reports: Patient, RN Notes Reviewed - History of Present Illness INITIAL COMMENTS - FREE TEXT/NARRATIVE: 81 yr old female fell unto R shoulder yesterday. Has continued severe pain R shoulder, R upper arm, much worse with any type of motion. Denies other pain or injury from the fall. Right Arm Pain Score (Numeric/FACES): 8 - Related Data Allergies Allergy/AdvReac Type Severity Reaction Status Date / Time cephalexin Allergy Hives Verified 06/03/21 10:15 codeine Allergy Hives Verified 06/03/21 10:15 nitrofurantoin Allergy Rash Verified 06/03/21 10:15 sulfacetamide Allergy Hives Verified 06/03/21 10:15 Home Meds: Home Meds Denosumab [Prolia] 60 mg SUBCUT ASDIRECTED 04/02/17 [History] Albuterol [Ventolin HFA] 1 - 2 puff INH Q6H PRN 12/24/18 [History] Bumetanide 1 mg PO DAILY 12/24/18 [History] Cetirizine HCl [Zyrtec] 10 mg PO DAILY 12/24/18 [History] Gabapentin [Neurontin] 600 mg PO BID 12/24/18 [History] Montelukast [Singulair] 10 mg PO BEDTIME 12/24/18 [History] Pramipexole Di-HCl [Mirapex] 1 mg PO BEDTIME 12/24/18 [History] Sennosides/Docusate Sodium [Senna-Docusate Sodium Tablet] 2 tab PO DAILY 12/24/18 [History] atorvaSTATin [Lipitor] 20 mg PO DAILY 12/24/18 [History] Cholecalciferol (Vitamin D3) [Vitamin D3] 5,000 unit PO DAILY 08/25/19 [History] Levothyroxine 25 mcg PO DAILY 08/25/19 [History] Losartan Potassium 100 mg PO DAILY 08/25/19 [History] hydroCHLOROthiazide [Hydrochlorothiazide] 12.5 mg PO DAILY 08/25/19 [History] Acetaminophen/oxyCODONE [Percocet 325-5 MG] 1 - 2 tab PO Q4H PRN #60 tablet 08/29/19 [Rx] Cyclobenzaprine [Flexeril] 5 mg PO BID PRN #20 tablet 08/29/19 [Rx] Famotidine [Pepcid] 20 mg PO Q12H tablet 08/29/19 [Rx] Magnesium Hydroxide [Milk of Magnesia] 30 ml PO BID PRN cup 08/29/19 [Rx] Rivaroxaban [Xarelto] 10 mg PO DAILY #40 tablet 08/29/19 [Rx] Sennosides [Senna] 8.6 mg PO BID PRN tablet 08/29/19 [Rx] bisacodyL [Dulcolax] 5 mg PO DAILY PRN tablet 08/29/19 [Rx] Tiotropium [place] [Spiriva Respimat] 2.5 mcg INH DAILY 08/31/19 [History] Acetaminophen/oxyCODONE [Percocet 325-5 MG] 2 tab PO Q4H PRN tablet 09/01/19 [Rx] Cyclobenzaprine [Flexeril] 5 mg PO BID PRN tablet 09/01/19 [Rx] Hydrocodone/Acetaminophen [HYDROcodone-Acetaminophen 5-325 MG] 1 each PO Q6HR PRN #14 tab 06/03/21 [Rx] Past Medical History HEENT History: Reports: Allergic Rhinitis, Impaired Vision Cardiovascular History: Reports: Heart Failure, High Cholesterol, Hypertension, Other (See Below) Other Cardiovascular History: chest pain, edema Respiratory History: Reports: Asthma Gastrointestinal History: Reports: Hiatal Hernia Genitourinary History: Reports: Other (See Below) Other Genitourinary History: dysuria, hematuria METHODS ANALYST History: Reports: Musculoskeletal History: Reports: Arthritis, Back Pain, Chronic, Osteoarthritis, Osteoporosis, Other (See Below) Other Musculoskeletal History: knee pain, back pain, restless leg syndrome Neurological History: Reports: None Psychiatric History: Reports: Depression Endocrine/Metabolic History: Reports: Obesity/BMI 30+ Hematologic History: Reports: Bleeding Disorder Immunologic History: Reports: None Oncologic (Cancer) History: Reports: None Dermatologic History: Reports: None - Past Surgical History Head Surgeries/Procedures: Reports: None Cardiovascular Surgical History: Reports: None Respiratory Surgical History: Reports: None GI Surgical History: Reports: Nicanor Fundoplication Female Surgical History: Reports: Hysterectomy Other Female Surgeries/Procedures: Bladder surgery Endocrine Surgical History: Reports: None Neurological Surgical History: Reports: Lumbar Spine Musculoskeletal Surgical History: Reports: Knee Replacement Oncologic Surgical History: Reports: None Dermatological Surgical History: Reports: None Social & Family History - Family History Family Medical History: No Pertinent Family History - Tobacco Use Tobacco Use Status *Q: Never Tobacco User - Caffeine Use Caffeine Use: Reports: None Review of Systems - Review of Systems Review Of Systems: See Below Constitutional: Reports: No Symptoms Eyes: Reports: No Symptoms Ears: Reports: No Symptoms Nose: Reports: No Symptoms Respiratory: Denies: Shortness of Breath, Pleuritic Chest Pain Cardiovascular: Denies: Chest Pain GI/Abdominal: Denies: Abdominal Pain, Nausea, Vomiting Musculoskeletal: Reports: Shoulder Pain, Arm Pain Neurological: Reports: No Symptoms ED EXAM, GENERAL - Physical Exam Exam: See Below General Appearance: Alert, Mild Distress Head: Atraumatic Neck: Supple, Non-Tender Respiratory/Chest: No Respiratory Distress, Lungs Clear, Normal Breath Sounds Cardiovascular: Regular Rate, Rhythm Extremities: Other ( anterior shoulder, no visible swelling, bruising or deformity) Neurological: Alert, Oriented, No Motor/Sensory Deficits Skin Exam: Warm, Dry, Intact, Normal Color Course - Vital Signs Last Recorded V/S: Last Vital Signs Temp 97.8 F 06/03/21 10:12 Pulse 87 06/03/21 10:12 Resp 18 06/03/21 10:12 BP 200/107 H 06/03/21 10:12 Pulse Ox 98 06/03/21 10:12 - Orders/Labs/Meds Meds: Medications Discontinued Medications Generic Name Dose Route Start Last Admin Trade Name Jakeq PRN Reason Stop Dose Admin Hydrocodone Bitart/Acetaminophen 1 tab 06/03/21 11:21 06/03/21 11:37 Acetaminophen/Hydrocodone 325-5 Mg Tab PO 06/03/21 11:22 1 tab ONETIME ONE Administration - Re-Assessments/Exams Free Text/Narrative Re-Assessment/Exam: 06/04/21 15:14. X ray shows fx superior humerus, nondisplaced. discharge instr. as documented. Departure - Departure Time of Disposition: 11:13 Disposition: Home, Self-Care 01 Clinical Impression: Fall Qualifiers: Encounter type: initial encounter Qualified Code(s): W19.XXXA - Unspecified fall, initial encounter Humerus head fracture Qualifiers: Encounter type: initial encounter Fracture type: closed Laterality: right Qualified Code(s): S42.291A - Other displaced fracture of upper end of right humerus, initial encounter for closed fracture - Discharge Information Prescriptions: Hydrocodone/Acetaminophen [HYDROcodone-Acetaminophen 5-325 MG] 1 each PO Q6HR PRN #14 tab PRN Reason: Pain Instructions: Humerus Fracture Treated With Immobilization, [id number] Referrals: Arsen Patel MD [Primary Care Provider] - Forms: ED Department Discharge Additional Instructions: Arm sling. Ice packs 3 to 4 time daily for pain and swelling. 1/2 tablet hydrocodone along with 500 mg tylenol q 6 to 8 hr as needed for pain. Prescription has been sent to [facility] on [address]. Follow up with your medical provider or Dr Coyne next week for recheck, call for appt. Physical Therapy starting early next week. Sepsis Event Note (ED) - Evaluation Sepsis Screening Result: No Definite Risk
[2021-06-03] MEDS ORDERED: Acetaminophen/HYDROcodone 325-5 MG Tab PO ONE (11:21)
--- NOTE | 2021-06-03 11:22 | CR ---
Right humerus: 2 views of the right humerus were obtained. Comparison: No previous humerus is available. Compared to shoulder study performed on the same day. Fracture is seen at the base of the greater tuberosity. No significant displacement is appreciated. No additional abnormality is seen within the humerus. Impression: 1. Fracture at the base of the greater tuberosity showing no significant displacement. Diagnostic code #3
--- NOTE | 2021-06-03 11:22 | CR ---
Right shoulder: 3 views of the right shoulder were obtained. Comparison: Study correlated with humerus exam performed on the same day. Fracture is seen within the base of the greater tuberosity. Alignment remains close to anatomic. Glenohumeral joint and acromioclavicular joint are normal. No additional abnormality is seen. Impression: 1. Fracture at the base of the greater tuberosity which remains close to anatomic alignment. 2. Right shoulder study is otherwise unremarkable. Diagnostic code #3
== END 2021-06-03 11:40 | disposition home or self-care (01) ==
LOC: JD.ED 09:24
DX: S42.291A Other displaced fracture of upper end of right humerus, initial encounter for closed fracture (principal); I11.0 Hypertensive heart disease with heart failure; I50.9 Heart failure, unspecified; E66.9 Obesity, unspecified; M19.90 Unspecified osteoarthritis, unspecified site; Z68.41 Body mass index [BMI] 40.0-44.9, adult; Z88.1 Allergy status to other antibiotic agents; Z88.5 Allergy status to narcotic agent; Z79.01 Long term (current) use of anticoagulants; Z79.899 Other long term (current) drug therapy; W18.39XA Other fall on same level, initial encounter
CPT/HCPCS: 73030; 73060; 99283; A9270

== ENCOUNTER 2021-07-01 16:21 | Emergency (ER) | payer MEDICARE, OTHER ==
[2021-07-01] MEDS ORDERED: Sodium Chloride 0.9% 10 ML Syringe FLUSH PRN (18:10)
[2021-07-01 18:38] LABS: CORONAVIRUS COVID-19 NAA NEGATIVE (NEGATIVE)
--- NOTE | 2021-07-01 19:24 | EDM.PDOC ---
ED HPI GENERAL MEDICAL PROBLEM - General Chief Complaint: Respiratory Problem Stated Complaint: SOB, COUGH Time Seen by Provider: 07/01/21 17:40 Source of Information: Reports: Patient History Limitations: Reports: No Limitations - History of Present Illness INITIAL COMMENTS - FREE TEXT/NARRATIVE: 81-year-old female presents to the emergency department today with complaints of a cough and shortness of breath that started before 2020. Patient has been evaluated by her primary care provider, Dr. Alex for these complaints. I did receive a call from him today stating he was going to send her to the emergency department for further work-up. States that she has been tested for COVID and influenza and these were both negative. He suspected she may have worsening heart failure so he did increase her Lasix for 5 days which did not help. He did check a proBNP level and this was within normal limits. He states her weight is up approximately 20 pounds. Radiologist impression 2 view chest x-ray from 06/24/2021: Heart size is normal in size. Minimal atelectasis at the left lung base. Lungs are otherwise clear. Urinalysis was unremarkable. However he states D-dimer was elevated and he felt she needed to have a CTA of her lungs. Patient denies any recent fever, chills, nausea, vomiting or diarrhea. She denies any urinary symptoms. She denies any headache sore throat or generalized body aches. He tells me that she has difficulty sleeping at night because when she lays flat on her back she becomes more short of breath and cough becomes more persistent. States she has been sleeping in a recliner for the past couple weeks. Patient tells me she does have a history of asthma and was recently started on Spiriva. - Related Data Allergies Allergy/AdvReac Type Severity Reaction Status Date / Time cephalexin Allergy Hives Verified 07/01/21 17:51 codeine Allergy Hives Verified 07/01/21 17:51 nitrofurantoin Allergy Rash Verified 07/01/21 17:51 sulfacetamide Allergy Hives Verified 07/01/21 17:51 Home Meds: Home Meds Denosumab [Prolia] 60 mg SUBCUT ASDIRECTED 04/02/17 [History] Albuterol [Ventolin HFA] 1 - 2 puff INH Q6H PRN 12/24/18 [History] Bumetanide 1 mg PO DAILY 12/24/18 [History] Cetirizine HCl [Zyrtec] 10 mg PO DAILY 12/24/18 [History] Gabapentin [Neurontin] 600 mg PO BID 12/24/18 [History] Montelukast [Singulair] 10 mg PO BEDTIME 12/24/18 [History] Pramipexole Di-HCl [Mirapex] 1 mg PO BEDTIME 12/24/18 [History] Sennosides/Docusate Sodium [Senna-Docusate Sodium Tablet] 2 tab PO DAILY 12/24/18 [History] atorvaSTATin [Lipitor] 20 mg PO DAILY 12/24/18 [History] Cholecalciferol (Vitamin D3) [Vitamin D3] 5,000 unit PO DAILY 08/25/19 [History] Levothyroxine 25 mcg PO DAILY 08/25/19 [History] Losartan Potassium 100 mg PO DAILY 08/25/19 [History] hydroCHLOROthiazide [Hydrochlorothiazide] 12.5 mg PO DAILY 08/25/19 [History] Acetaminophen/oxyCODONE [Percocet 325-5 MG] 1 - 2 tab PO Q4H PRN #60 tablet 08/29/19 [Rx] Cyclobenzaprine [Flexeril] 5 mg PO BID PRN #20 tablet 08/29/19 [Rx] Famotidine [Pepcid] 20 mg PO Q12H tablet 08/29/19 [Rx] Magnesium Hydroxide [Milk of Magnesia] 30 ml PO BID PRN cup 08/29/19 [Rx] Rivaroxaban [Xarelto] 10 mg PO DAILY #40 tablet 08/29/19 [Rx] Sennosides [Senna] 8.6 mg PO BID PRN tablet 08/29/19 [Rx] bisacodyL [Dulcolax] 5 mg PO DAILY PRN tablet 08/29/19 [Rx] Tiotropium [place] [Spiriva Respimat] 2.5 mcg INH DAILY 08/31/19 [History] Acetaminophen/oxyCODONE [Percocet 325-5 MG] 2 tab PO Q4H PRN tablet 09/01/19 [Rx] Cyclobenzaprine [Flexeril] 5 mg PO BID PRN tablet 09/01/19 [Rx] Hydrocodone/Acetaminophen [HYDROcodone-Acetaminophen 5-325 MG] 1 each PO Q6HR PRN #14 tab 06/03/21 [Rx] Benzonatate [Tessalon Perles] 100 mg PO TID PRN #20 cap 07/01/21 [Rx] Doxycycline [Vibramycin] 100 mg PO BID #9 tab 07/01/21 [Rx] predniSONE [Prednisone] 20 mg PO DAILY #5 tablet 07/01/21 [Rx] Past Medical History HEENT History: Reports: Allergic Rhinitis, Impaired Vision Cardiovascular History: Reports: Heart Failure, High Cholesterol, Hypertension, Other (See Below) Other Cardiovascular History: chest pain, edema Respiratory History: Reports: Asthma Gastrointestinal History: Reports: Hiatal Hernia Genitourinary History: Reports: Other (See Below) Other Genitourinary History: dysuria, hematuria 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: Musculoskeletal History: Reports: Arthritis, Back Pain, Chronic, Osteoarthritis, Osteoporosis, Other (See Below) Other Musculoskeletal History: knee pain, back pain, restless leg syndrome Neurological History: Reports: None Psychiatric History: Reports: Depression Endocrine/Metabolic History: Reports: Obesity/BMI 30+ Hematologic History: Reports: Bleeding Disorder Immunologic History: Reports: None Oncologic (Cancer) History: Reports: None Dermatologic History: Reports: None - Past Surgical History Head Surgeries/Procedures: Reports: None Cardiovascular Surgical History: Reports: None Respiratory Surgical History: Reports: None GI Surgical History: Reports: Nicanor Fundoplication Female Surgical History: Reports: Hysterectomy Other Female Surgeries/Procedures: Bladder surgery Endocrine Surgical History: Reports: None Neurological Surgical History: Reports: Lumbar Spine Musculoskeletal Surgical History: Reports: Knee Replacement Oncologic Surgical History: Reports: None Dermatological Surgical History: Reports: None Social & Family History - Family History Family Medical History: No Pertinent Family History - Tobacco Use Tobacco Use Status *Q: Unknown Ever Used Tobacco - Caffeine Use Caffeine Use: Reports: None - Recreational Drug Use Recreational Drug Use: No ED ROS GENERAL - Review of Systems Review Of Systems: Comprehensive ROS is negative, except as noted in HPI. ED EXAM, GENERAL - Physical Exam Exam: See Below Exam Limited By: No Limitations General Appearance: Alert, WD/WN, No Apparent Distress Ears: Normal External Exam, Hearing Grossly Normal Nose: Normal Inspection Throat/Mouth: Normal Inspection, Normal Lips, Normal Voice, No Airway Compromise Head: Atraumatic, Normocephalic Neck: Normal Inspection, Supple Respiratory/Chest: No Respiratory Distress, Lungs Clear, Normal Breath Sounds, No Accessory Muscle Use, Chest Non-Tender Cardiovascular: Normal Peripheral Pulses, Regular Rate, Rhythm, No Edema, No Murmur GI/Abdominal: Normal Bowel Sounds, Soft, Non-Tender, No Distention (Female) Exam: Deferred Rectal (Female) Exam: Deferred Back Exam: Normal Inspection Extremities: Normal Inspection, Normal Range of Motion, Non-Tender, Normal Capillary Refill, Pedal Edema (2+ edema noted to bilateral lower extremities) Neurological: Alert, Oriented, Normal Cognition Psychiatric: Normal Affect, Normal Mood Skin Exam: Warm, Dry, Intact, Normal Color, No Rash Lymphatic: No Adenopathy Course - Vital Signs Text/Narrative:: Needed above, patient presents with 2-week history of harsh cough and shortness of breath. Physical exam reveals an awake alert female. She does have a loose rattly cough noted, lung sounds are diminished. Heart is regular without murmur. Abdomen is soft and nontender. Patient does have 2+ edema noted to her bilateral lower extremities. Patient's O2 saturations are 100% on room air. She is afebrile at the time of triage. Will obtain lab studies. Nursing staff has ordered COVID, influenza and RSV testing per standing orders. Last Recorded V/S: Last Vital Signs Temp 96 F L 07/01/21 19:10 Pulse 102 H 07/01/21 19:10 Resp 16 07/01/21 19:10 BP 140/71 07/01/21 19:10 Pulse Ox 95 07/01/21 19:10 - Orders/Labs/Meds Orders: Active Orders 24 hr Category Date Time Status Chest 2V [CR] Stat Exams 07/01/21 19:25 Taken Sodium Chloride 0.9% [Saline Flush] Med 07/01/21 18:10 Active 10 ml FLUSH ASDIRECTED PRN Saline Lock Insert [OM.PC] Stat Oth 07/01/21 18:10 Ordered Medication Orders Sodium Chloride (Sodium Chloride 0.9% 10 Ml Syringe) 10 ml FLUSH ASDIRECTED PRN PRN Reason: Keep Vein Open Last Admin: 07/01/21 18:34 Dose: 10 ml Documented by: FRANSICO Labs: Laboratory Tests 07/01/21 07/01/21 07/01/21 Range/Units 17:45 18:32 18:32 WBC 12.59 H (3.98-10.04) K/mm3 RBC 4.38 (3.98-5.22) M/mm3 Hgb 13.1 (11.2-15.7) gm/dl Hct 40.9 (34.1-44.9) % MCV 93.4 (79.4-94.8) fl MCH 29.9 (25.6-32.2) pg MCHC 32.0 L (32.2-35.5) g/dl RDW Std Deviation 43.2 (36.4-46.3) fL Plt Count 398 H (182-369) K/mm3 MPV 9.5 (9.4-12.3) fl Neut % (Auto) 63.3 (34.0-71.1) % Lymph % (Auto) 26.5 (19.3-51.7) % Finney % (Auto) 7.8 (4.7-12.5) % Eos % (Auto) 1.3 (0.7-5.8) Baso % (Auto) 0.6 (0.1-1.2) % Neut # (Auto) 7.97 H (1.56-6.13) K/mm3 Lymph # (Auto) 3.34 (1.18-3.74) K/mm3 Finney # (Auto) 0.98 H (0.24-0.36) K/mm3 Eos # (Auto) 0.16 (0.04-0.36) K/mm3 Baso # (Auto) 0.08 (0.01-0.08) K/mm3 D-Dimer, Quantitative 0.56 H (0.19-0.50) mg/L Sodium (136-145) mEq/L Potassium (3.5-5.1) mEq/L Chloride (98-107) mEq/L Carbon Dioxide (21-32) mEq/L Anion Gap (5-15) BUN (7-18) mg/dL Creatinine (0.55-1.02) mg/dL Est Cr Clr Drug Dosing mL/min Estimated GFR (MDRD) (>60) mL/min BUN/Creatinine Ratio (14-18) Glucose (70-99) mg/dL Calcium (8.5-10.1) mg/dL Magnesium (1.8-2.4) mg/dL Total Bilirubin (0.2-1.0) mg/dL AST (15-37) U/L ALT (14-59) U/L Alkaline Phosphatase (46-116) U/L C-Reactive Protein (<1.0) mg/dL Total Protein (6.4-8.2) g/dl Albumin (3.4-5.0) g/dl Globulin gm/dL Albumin/Globulin Ratio (1-2) Influenza Type A RNA Negative (NEGATIVE) RSV RNA (INAAT) Positive H (NEGATIVE) Influenza Type B RNA Negative (NEGATIVE) SARS-CoV-2 RNA (FRANK) Negative (NEGATIVE) 07/01/21 Range/Units 18:32 WBC (3.98-10.04) K/mm3 RBC (3.98-5.22) M/mm3 Hgb (11.2-15.7) gm/dl Hct (34.1-44.9) % MCV (79.4-94.8) fl MCH (25.6-32.2) pg MCHC (32.2-35.5) g/dl RDW Std Deviation (36.4-46.3) fL Plt Count (182-369) K/mm3 MPV (9.4-12.3) fl Neut % (Auto) (34.0-71.1) % Lymph % (Auto) (19.3-51.7) % Finney % (Auto) (4.7-12.5) % Eos % (Auto) (0.7-5.8) Baso % (Auto) (0.1-1.2) % Neut # (Auto) (1.56-6.13) K/mm3 Lymph # (Auto) (1.18-3.74) K/mm3 Finney # (Auto) (0.24-0.36) K/mm3 Eos # (Auto) (0.04-0.36) K/mm3 Baso # (Auto) (0.01-0.08) K/mm3 D-Dimer, Quantitative (0.19-0.50) mg/L Sodium 138 (136-145) mEq/L Potassium 3.5 (3.5-5.1) mEq/L Chloride 98 (98-107) mEq/L Carbon Dioxide 31 (21-32) mEq/L Anion Gap 12.5 (5-15) BUN 29 H (7-18) mg/dL Creatinine 1.3 H (0.55-1.02) mg/dL Est Cr Clr Drug Dosing 28.07 mL/min Estimated GFR (MDRD) 39 (>60) mL/min BUN/Creatinine Ratio 22.3 H (14-18) Glucose 91 (70-99) mg/dL Calcium 9.7 (8.5-10.1) mg/dL Magnesium 1.3 L (1.8-2.4) mg/dL Total Bilirubin 0.6 (0.2-1.0) mg/dL AST 13 L (15-37) U/L ALT 22 (14-59) U/L Alkaline Phosphatase 139 H (46-116) U/L C-Reactive Protein <0.2 (<1.0) mg/dL Total Protein 7.4 (6.4-8.2) g/dl Albumin 3.3 L (3.4-5.0) g/dl Globulin 4.1 gm/dL Albumin/Globulin Ratio 0.8 L (1-2) Influenza Type A RNA (NEGATIVE) RSV RNA (INAAT) (NEGATIVE) Influenza Type B RNA (NEGATIVE) SARS-CoV-2 RNA (FRANK) (NEGATIVE) Meds: Medications Generic Name Dose Route Start Last Admin Trade Name Jayesh PRN Reason Stop Dose Admin Sodium Chloride 10 ml 07/01/21 18:10 07/01/21 18:34 Sodium Chloride 0.9% 10 Ml Syringe FLUSH 10 ml ASDIRECTED PRN Administration Keep Vein Open Discontinued Medications Generic Name Dose Route Start Last Admin Trade Name Jayesh PRN Reason Stop Dose Admin Benzonatate 100 mg 07/01/21 19:47 07/01/21 20:00 Benzonatate 100 Mg Cap PO 07/01/21 19:48 100 mg ONETIME ONE Administration Doxycycline Hyclate 100 mg 07/01/21 19:50 07/01/21 20:00 Doxycycline 100 Mg Cap PO 07/01/21 19:51 100 mg ONETIME ONE Administration Prednisone 40 mg 07/01/21 19:47 07/01/21 20:00 Prednisone 20 Mg Tab PO 07/01/21 19:48 40 mg ONETIME ONE Administration - Re-Assessments/Exams Free Text/Narrative Re-Assessment/Exam: 07/01/21 19:27 Hematology reveals a WBC of 12.59, hemoglobin 13.1, hematocrit 40.9, platelet count 398 Chemistry reveals a sodium of 138, potassium 3.5, anion gap 12.9, BUN 29, creatinine 1.3, glucose 91, magnesium 1.3, AST 13, ALT 22, alk phos 139, C- reactive protein less than 0.2 D-dimer 0.56 Patient's influenza a and B tests are negative, COVID test is negative however RSV test is positive. Despite the fact that the patient's primary care provider did want the patient to have a CT of her lungs, I do not feel it is warranted as her D-dimer is only 0.56 which although it is slightly elevated it is well within normal limits for her age. 07/01/21 19:32 I have ordered a 2 view chest x-ray of the patient. 07/01/21 20:04 I discussed the patient case with her primary care provider, Dr. Alex. I did not have any results back from a chest x-ray. He is requesting that patient be started on prednisone as well as an antibiotic. I have ordered for the patient received 40 mg of prednisone and 100 mg of doxycycline as well as a Tessalon Perle for the cough while here in the emergency department. Radiologist impression 2 view chest x-ray: Some stable slight atelectasis left lung base. Chest otherwise negative. No acute findings. Patient will be discharged home with a prescription for prednisone 20 mg daily for the next 5 days as well as doxycycline 100 mg twice daily for 5 days and Tessalon Perles 3 times daily as needed for cough. She will need to follow-up with her primary care provider in about a week for reevaluation. Departure - Departure Time of Disposition: 20:07 Disposition: Home, Self-Care 01 Condition: Good Clinical Impression: Respiratory syncytial virus (RSV) infection, Bronchitis - Discharge Information Prescriptions: predniSONE [Prednisone] 20 mg PO DAILY #5 tablet Benzonatate [Tessalon Perles] 100 mg PO TID PRN #20 cap PRN Reason: Cough Doxycycline [Vibramycin] 100 mg PO BID #9 tab Instructions: Acute Bronchitis, Adult, [id number] Referrals: Arsen Patel MD [Primary Care Provider] - Forms: ED Department Discharge Additional Instructions: You were seen in the emergency department today for further evaluation related to your cough that has been ongoing since before [place]. Full work-up was completed which included labs, chest x-ray, and COVID influenza and RSV testing. Labs were essentially unremarkable however as discussed your white blood cell count is just slightly elevated. CT scan of the chest was not warranted as lab studies were not elevated to direct us to perform a CT scan. Chest x-ray does not show any sign of pneumonia or infective process. RSV test was positive and the remainder of the test were negative. As discussed you will be started on prednisone. First dose was given in the emergency department. Recommend that starting tomorrow evening you take 20 mg daily until gone. Also recommend that you take an antibiotic called doxycycline 100 mg twice daily until gone. First dose was also given in the emergency department. I have also sent a prescription for medication called Deedee Garrison to your pharmacy. This medication should help relieve your cough. You may take 1 tab 3 times daily. First thing in the morning midday and then just before bed to help you get a restful night of sleep. You will need to follow-up with Dr. Alex in 1 week. As discussed, if he is not in follow-up appointment that is already scheduled is appropriate. Should your condition worsen or change, do not hesitate returning to the emergency department. Sepsis Event Note (ED) - Evaluation Sepsis Screening Result: No Definite Risk - Focused Exam Vital Signs: Vital Signs Temp Pulse Resp BP Pulse Ox 07/01/21 19:10 96 F L 102 H 16 140/71 95 07/01/21 17:48 98.0 F 108 H 18 132/103 H 100 - My Orders Last 24 Hours: My Active Orders 07/01/21 18:10 Sodium Chloride 0.9% [Saline Flush] 10 ml FLUSH ASDIRECTED PRN Saline Lock Insert [OM.PC] Stat 07/01/21 19:25 Chest 2V [CR] Stat - Assessment/Plan Last 24 Hours: My Active Orders 07/01/21 18:10 Sodium Chloride 0.9% [Saline Flush] 10 ml FLUSH ASDIRECTED PRN Saline Lock Insert [OM.PC] Stat 07/01/21 19:25 Chest 2V [CR] Stat
[2021-07-01] MEDS ORDERED: Benzonatate 100 MG Cap PO ONE (19:47)
[2021-07-01] MEDS ORDERED: predniSONE 20 MG Tab PO ONE (19:47)
[2021-07-01] MEDS ORDERED: Doxycycline 100 MG Cap PO ONE (19:50)
--- NOTE | 2021-07-01 22:47 | CR ---
EXAM: XR CHEST 2 VIEWS LOCATION: [facility] [email or web address] DATE/TIME: 07/01/2021 7:28 PM INDICATION: Cough with sob COMPARISON: 06/24/21 IMPRESSION: Some stable slight atelectasis left lung base. Chest otherwise negative. No acute new findings. SIGNED BY: Suraj Husain MD 07/01/2021 8:49 PM [facility]STOPH
== END 2021-07-01 20:33 | disposition home or self-care (01) ==
LOC: JD.ED 16:21
DX: J40 Bronchitis, not specified as acute or chronic (principal); B97.4 Respiratory syncytial virus as the cause of diseases classified elsewhere; E78.00 Pure hypercholesterolemia, unspecified; Z88.5 Allergy status to narcotic agent; Z88.8 Allergy status to other drugs, medicaments and biological substances; Z79.899 Other long term (current) drug therapy; Z88.2 Allergy status to sulfonamides; Z90.710 Acquired absence of both cervix and uterus; Z20.822 Contact with and (suspected) exposure to COVID-19
CPT/HCPCS: 0241U; 36415; 71046; 80053; 83735; 85025; 85379; 86140; 99285; A9270; J7512

== ENCOUNTER 2024-11-30 08:11 | Day surgery (SDC) | payer MEDICARE, OTHER ==
[~2024-11-30 08:11] MED LIST changes: -Acetaminophen 325 MG Tab PO SCH; -Lidocaine 1%/Sod Bicarbonate in NS 8.4% 1 ML Syringe IDERM PRN; -Pregabalin 25 MG Cap PO SCH; +Sodium Chloride 0.9% 10 ML Syringe FLUSH SCH; -oxyCODONE ER 10 MG TAB.ER PO SCH
[2024-11-30] MEDS: Lactated Ringers 1,000 ML IV SCH (09:05)
[2024-11-30] MEDS ORDERED: Propofol 200 MG/20 ML SDV ONE ×2 (09:27→10:06)
== END 2024-11-30 10:58 | disposition home or self-care (01) ==
LOC: JD.SDS 08:11
PROVIDERS: ATTEND Surgery
DX: Z12.11 Encounter for screening for malignant neoplasm of colon (principal); R19.5 Other fecal abnormalities; J45.909 Unspecified asthma, uncomplicated; I11.0 Hypertensive heart disease with heart failure; I50.9 Heart failure, unspecified; J98.2 Interstitial emphysema; E78.00 Pure hypercholesterolemia, unspecified; E11.9 Type 2 diabetes mellitus without complications; E03.9 Hypothyroidism, unspecified; Z87.891 Personal history of nicotine dependence; Z79.890 Hormone replacement therapy; Z79.899 Other long term (current) drug therapy
CPT/HCPCS: G0121; J2704; J7120